=== PATIENT | female | born 1995 | race Caucasian/White ===

== ENCOUNTER 2020-02-24 08:15 | Outpatient (CLI) | payer OTHER, SELFPAY ==
--- NOTE | ~2020-02-24 | US_ITS ---
EXAMINATION: US right upper quadrant DATE: 02/24/2020 08:58 INDICATION: Right upper quadrant abdominal pain. TECHNIQUE: Multiple grayscale and Doppler ultrasound images of the abdomen were obtained. COMPARISON: None FINDINGS: The visualized portions of the head, body, and tail of the pancreas are normal. The liver i s normal without focal lesion. There is normal flow in main portal vein. The gallbladder is normal in size and contains sludge. No gallstones or gallbladder wall thickening. There was a positive sonogra phic Barker sign. The common duct is normal and measures 5 mm. IMPRESSION: 1. Gallbladder sludge and positive sonographic Barker sign, but no gallstones, gallbladder wall thick ening, or gallbladder distention to suggest acute cholecystitis. Reviewed, dictated and finalized at location A. IMPRESSION: 1. Gallbladder sludge and positive sonographic Barker sign, but no gallstones, gallbladder wall thickening, or gallbladder distention to suggest acute cholecy stitis.
== END 2020-02-24 08:16 | disposition home or self-care (01) ==
PROVIDERS: PCP Family Medicine; Visit Provider Family Medicine
DX: R10.9 Unspecified abdominal pain (principal); K83.9 Disease of biliary tract, unspecified; R19.8 Other specified symptoms and signs involving the digestive system and abdomen
CPT/HCPCS: 76705

== ENCOUNTER 2020-03-05 08:15 | Outpatient (CLI) | payer OTHER, SELFPAY ==
--- NOTE | ~2020-03-05 | NM_ITS ---
EXAMINATION: NM hepatobiliary w pharm DATE: 03/05/2020 10:17 INDICATION: Abdominal pain COMPARISON: None. TECHNIQUE: 4.8 mCi Tc-99m mebrofenin (Choletec) was administered intravenously. Scintigraphic images of the abdomen were obtained for one hour. 1.5 mcg sincalide (Kinevac) was administered by slow intr avenous infusion, and imaging was continued for 30 minutes. Gallbladder ejection fraction was calcula marlene by the technologist. FINDINGS: There is normal clearance of radiotracer from the blood pool. There is homogeneous tracer uptake by t he liver. Activity progresses to the gallbladder and bowel. The gallbladder ejection fraction (GBEF) is 55% (normal 10-90%, but most patient with gallbladder dysfunction have GBEF < 35% which does over lap with the normal range). IMPRESSION: 1. Normal hepatobiliary scan Reviewed, dictated and finalized at location A.
== END 2020-03-05 08:16 | disposition home or self-care (01) ==
LOC: ANHIMG 08:29
PROVIDERS: PCP Family Medicine; Visit Provider Family Medicine
DX: R10.9 Unspecified abdominal pain (principal)
CPT/HCPCS: 78227; A9537; J2805

== ENCOUNTER 2020-03-23 12:58 | Outpatient (CLI) | payer OTHER, SELFPAY ==
[2020-03-23 13:35] LABS: Alanine Aminotransferase 27 U/L (4-35); Albumin Level 4.7 g/dL (3.5-5.1); Alkaline Phosphatase 72 U/L (38-126); Amylase 62 U/L (30-110); Aspartate Amino Transferase 30 U/L (14-36); Bilirubin,Total 0.3 mg/dL (0.2-1.3); Lipase 43 U/L (23-300)
== END 2020-03-23 12:59 | disposition home or self-care (01) ==
PROVIDERS: PCP Family Medicine; Visit Provider Surgery
DX: K81.1 Chronic cholecystitis (principal); Z01.818 Encounter for other preprocedural examination
CPT/HCPCS: 36415; 80076; 82150; 83690; 86850; 86900; 86901

== ENCOUNTER 2020-03-24 01:54 | Outpatient (CLI) | payer OTHER, SELFPAY ==
[2020-03-24 18:09] LABS: SARS-CoV-2 RNA PCR Negative
== END 2020-03-24 01:55 | disposition home or self-care (01) ==
LOC: ANHCOVIDDT 01:54
PROVIDERS: PCP Family Medicine; Visit Provider Surgery
DX: Z01.818 Encounter for other preprocedural examination (principal); Z11.59 Encounter for screening for other viral diseases
CPT/HCPCS: 87635; C9803; U0003

== ENCOUNTER 2020-03-27 02:47 | Day surgery (SDC) | payer OTHER, SELFPAY ==
[2020-03-21 11:11] VITALS: BMI 32.9
[2020-03-27] VITALS (9 sets, daily range): BP systolic 86–116; BP diastolic 39–68; PULSE 54–80; RESP 12–20; TEMP 36.9; O2SAT 93–99
--- NOTE | 2020-03-27 07:23 | WPDANESEPPF ---
Anes - Initial Pre Proc Eval Procedure: Operation Date: 03/27/20 09:00 Proposed Procedures p Laparoscopic Cholecystectomy - Yael Luna MD Date/Time: 03/27/20 07:23 Surgeon: Yael Luna MD Pre Op Diagnosis: Chronic Cholecystitis Patient Data Age: 24 Gender: F Height: 5 ft 2 in Weight: 81.65 kg Allergies Allergy/AdvReac Type Severity Reaction Status Date / Time bacitracin Allergy Severe RASH Verified 03/21/20 11:12 gramicidin D Allergy Severe RASH Verified 03/21/20 11:12 polymyxin B Allergy Severe RASH Verified 03/21/20 11:12 adhesive AdvReac Mild RASH/BLISTE Verified 03/21/20 11:12 RS NEOMYCIN SULFATE Allergy Severe RASH Uncoded 03/21/20 11:12 Home Medications Medication Instructions Recorded Confirmed Type albuterol sulfate 90 mcg/actuation 1 puff INHALATION Q4H PRN 11/02/19 03/21/20 History aerosol inhaler dorzolamide 2 %-timolol 0.5 % (PF) 1 drop EACH EYE BID 11/02/19 03/21/20 History eye drops levothyroxine 137 mcg tablet 137 mcg PO DAILY 11/02/19 03/21/20 History ipratropium bromide 42 mcg (0.06 2 spray NASAL TID PRN 11/16/19 03/21/20 History %) nasal spray ondansetron 4 mg disintegrating 4 mg PO Q8H PRN 11/16/19 03/21/20 History tablet valacyclovir 1 gram tablet See Rx Instructions PO Q12H PRN #4 01/25/20 03/21/20 Rx tablet cholecalciferol (vitamin D3) 10 mcg PO DAILY 03/21/20 03/21/20 History [Vitamin D3] Patient hx anesthesia problems: post op nausea/vomiting Family hx anesthesia problems: none PMFSH Past Medical History Medical History Abdominal pain Abnormal fasting glucose Acute non-recurrent maxillary sinusitis Allergies Anxiety Biliary colic Chronic anxiety Chronic arthralgias of knees and hips Chronic autoimmune thyroiditis Chronic depression Depression Elevated liver enzymes Graves' disease in remission History of migraine headaches Hypothyroidism, unspecified Intractable right upper quadrant abdominal pain Migraine without aura and without status migrainosus, not intractable Nausea and vomiting Obesity Positive CHRISTIAN (antinuclear antibody) Posttraumatic stress disorder Seasonal allergic rhinitis Thyroid disorder Vitamin D deficiency, unspecified Surgical History Surgical History Hx of tonsillectomy (~2007) Family History Family History Mother Lupus Sjogren's disease Fibromyalgia Grandparent Kidney failure Diabetes mellitus Thyroid disorder Grandparent Hypertension COPD (chronic obstructive pulmonary disease) Grandparent Cancer Sibling Hemochromatosis Social History Social History Smoking packs per day: 0.5 Smoking cigarettes per day: 10.0 Years smoked: 6 Smoking pack-years: 3.00 Smoking status: Current every day smoker Tobacco type: cigarettes Second hand tobacco smoke exposure: Yes Alcohol intake: current Substance use: never Substance use type: marijuana Last use: 03/20/20 Spiritual care concerns: No Anes - Eval Final PreProcedure Day of Procedure 03/27/20 07:23 Patient weight: obese Heart: regular rate and rhythm Lungs: clear to auscultation Airway: Mallampati scale class II Neurological: alert and oriented Last oral intake: >/= 8 hours ASA classification: III Emergent: no Anesthetic plan: proceed Anesthesia type and monitoring: general ETT and standard monitoring Informed Consent: The patient's anesthetic plan and its attendant risks and benefits were discussed with the patient/family/POA. Questions were solicited and answers provided to the satisfaction of the patient/family/POA.
[2020-03-27] MEDS: KETOROLAC 15 MG/ML VIAL (*BKC) IV PUSH (07:45)
[2020-03-27] MEDS: LACTATED RINGERS 1,000 ML 30 ML IV CONT ×2 (07:45→09:43)
[2020-03-27] MEDS: FAMOTIDINE 20 MG/2 ML VIAL IV PUSH (07:50)
[2020-03-27] MEDS: SCOPOLAMINE 1.5 MG PATCH TRANSDERM (07:50)
[2020-03-27] MEDS: ONDANSETRON INJ 4 MG/2 ML VIAL IV PUSH (07:50)
--- NOTE | 2020-03-27 08:31 | WPDHPUPDATE1 ---
History and Physical Update Update Date/Time: 03/27/20 08:31 History and Physical has been reviewed, including an updated exam of the patient. There are NO changes in the patient's condition. Risks, benefits, and alternatives have been discussed and questions answered. Patient agrees to proceed with procedure.
[2020-03-27] MEDS: ceFAZolin 2 GM/D5W 50 ML 2 GM/50 ML BAG IVPB (08:35)
[2020-03-27] MEDS: BUPIVACAINE/EPINEPHRINE 0.5% 30 ML VIAL INFILTRATE (09:08)
--- NOTE | 2020-03-27 09:44 | PM.PROC ---
Procedure Note - Detailed Date of procedure: 03/27/20 Pre-op diagnosis: Chronic Cholecystitis Post-op diagnosis: same Procedure performed: laparoscopic cholecystectomy Description of procedure: The patient was taken to the operating room placed in the supine position. After adequate induction of general anesthesia, the patient was prepped and draped in normal sterile fashion. A time-out was then performed to verify the patient's identity as well as the procedure being performed. I then made a 5 mm incision in the infraumbilical region. Through this, a Veress needle was placed into the peritoneal cavity and CO2 gas was then insufflated. After adequate pneumoperitoneum was achieved, the Veress needle was removed and a 5 mm trocar was placed through this incision. I then placed the laparoscope through this trocar site and under direct visualization placed a further 12 mm subxiphoid port as well as 2 additional 5 mm ports in the right upper abdomen. The gallbladder was then identified and was noted to be slightly inflamed. I was able to place a grasper at the dome of the gallbladder and this was retracted anterior and cephalad up over the liver. A 2nd retractor was then placed at the infundibulum and retracted laterally, this allowed visualization of the triangle of Calot. I then was able to visualize the cystic duct in its entirety from its proximal insertion into the gallbladder, to its distal junction with the common hepatic/common bile duct junction. At this point, I carefully skeletonized the proximal cystic duct with the [place] dissector. I then clipped and transected the proximal cystic duct. Next I visualized the cystic artery. Again the artery was skeletonized, clipped, and transected. I then used the Bovie cautery to take down the peritoneal attachments of the gallbladder off the liver bed. Once the gallbladder specimen was completely detached, an endo-pouch was placed through the 12 mm port site. I then placed the gallbladder specimen into the Endo pouch and removed the endo-pouch from the 12 mm port site. The specimen will now be sent to pathology for further review. I then copiously irrigated the right upper quadrant. Hemostasis was noted in the liver bed, the clips were noted to be in good position on both the cystic duct stump and the cystic artery stump. No other pathology was noted in the right upper quadrant. I then moved the laparoscope to the subxiphoid port. No iatrogenic injury or other pathology was noted in the lower abdomen. At this point, the abdomen was desufflated and all ports removed. The fascia of the 12 mm subxiphoid port was closed with a 0 Vicryl figure of 8 suture. All port sites were then closed with 4.O Monocryl subcuticular sutures. Dermabond was placed on each incision. The patient tolerated the procedure well, was extubated in the operating room postoperative and will be transferred to the recovery room in stable condition. Implants: none Anesthesia: GETA Surgeon: Yael Luna MD Estimated blood loss (mL): 5 Drains: No Packing: No Pathology: yes Complications: No immediate complications Condition: stable Disposition: PACU Findings: chronic cholecystitis
== END 2020-03-27 11:30 | disposition home or self-care (01) ==
PROVIDERS: PCP Family Medicine; Visit Provider Surgery
PROC: 0FT44ZZ Resection of Gallbladder, Percutaneous Endoscopic Approach (ICD-10-PCS; CPT 47562; principal; 2020-03-27 09:00)
DX: K81.1 Chronic cholecystitis (principal); F41.8 Other specified anxiety disorders; E06.3 Autoimmune thyroiditis; E55.9 Vitamin D deficiency, unspecified; E66.9 Obesity, unspecified; Z68.33 Body mass index [BMI] 33.0-33.9, adult; F17.210 Nicotine dependence, cigarettes, uncomplicated; F12.90 Cannabis use, unspecified, uncomplicated
CPT/HCPCS: 47562; 88304; A9270; J0690; J1100; J1885; J2250; J2270; J2370; J2405; J2704; J3010; J7030; J7120

== ENCOUNTER 2020-08-17 10:37 | Outpatient (NON) | payer OTHER, SELFPAY ==
[2020-08-18 00:20] LABS: SARS-CoV-2 RNA PCR Negative
== END 2020-08-17 10:38 ==
LOC: ANHCOVIDDT 10:38
PROVIDERS: PCP Family Medicine; Visit Provider Family Medicine
DX: Z20.828 Contact with and (suspected) exposure to other viral communicable diseases (principal); J01.00 Acute maxillary sinusitis, unspecified
CPT/HCPCS: 87635; C9803; U0003

== ENCOUNTER 2020-10-11 10:14 | Outpatient (CLI) | payer OTHER, SELFPAY ==
--- NOTE | 2020-10-14 13:56 | WPDPFTINT ---
PFT Interpretation PFT Interpretation: This PFT met all criteria for ATS standards and reproducibility FEV/FVC 67% pre bronchodilator which improved to 82% post FEV1 90% FVC 89% FEV1 improved by 25% or 550 ml TLC 80% RV 45% RV/TLC 16% DLCO 75% when adjusted for alveolar volume but not adjusted for hemoglobin Flow volume loops were difficult to interpret Impression:Mild airflow obstruction with significant improvement post bronchodilator challenge and mildly decreased diffusion capacity. This pattern is most suggestive of Asthma. Clinical correlation is advised.
== END 2020-10-11 10:15 | disposition home or self-care (01) ==
LOC: ANHPFT 10:15
PROVIDERS: PCP Family Medicine; Visit Provider Family Medicine
DX: R05 Cough (principal); R94.2 Abnormal results of pulmonary function studies
CPT/HCPCS: 94060; 94726; 94729

== ENCOUNTER 2020-11-19 10:14 | Outpatient (CLI) | payer OTHER, SELFPAY ==
--- NOTE | ~2020-11-19 | XR_ITS ---
EXAMINATION: XR foot RT min 3V DATE: 11/19/2020 10:33 INDICATION: Right foot pain. TECHNIQUE: 4 views of right foot were obtained. COMPARISON: None. FINDINGS: Bone alignment is normal. No fracture. There is mild osteoarthritis of first metatarsophala ngeal joint. There is a nondisplaced fracture of dorsal proximal aspect of the navicular. IMPRESSION: 1. Age-indeterminate nondisplaced fracture of dorsal proximal aspect of navicular. 2. Mild osteoarthritis of first metatarsophalangeal joint. Reviewed, dictated and finalized at location A. BODY REPAIRER IMPRESSION: 1. Age-indeterminate nondisplaced fracture of dorsal proximal aspect of navicul ar. 2. Mild osteoarthritis of first metatarsophalangeal joint.
== END 2020-11-19 10:15 | disposition home or self-care (01) ==
LOC: ANHIMG 10:22
PROVIDERS: PCP Family Medicine; Visit Provider Family Medicine
DX: M19.071 Primary osteoarthritis, right ankle and foot (principal); S92.254A Nondisplaced fracture of navicular [scaphoid] of right foot, initial encounter for closed fracture; X58.XXXA Exposure to other specified factors, initial encounter
CPT/HCPCS: 73630

== ENCOUNTER → 2021-09-25 09:44 | Outpatient (CLI) | payer OTHER, SELFPAY ==
--- NOTE | ~2021-09-25 | US_ITS ---
US breast LT complete INDICATION: Palpable left breast lump TECHNIQUE: Dedicated left breast ultrasound COMPARISON: No prior studies for comparison. FINDINGS: The left breast is composed of normal heterogeneous echotexture without focal solid or cyst ic mass. IMPRESSION: 1: Normal left breast ultrasound. BI-RADS CATEGORY 1 - NEGATIVE Reviewed, dictated and finalized at location A. D FOLDER
== END ==
PROVIDERS: Visit Provider Advanced Practice Midwife
DX: R92.8 Other abnormal and inconclusive findings on diagnostic imaging of breast (principal)
CPT/HCPCS: 76641

== ENCOUNTER 2023-02-01 12:46 | Emergency (ER) | payer OTHER, SELFPAY ==
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
[2023-02-01 12:56] VITALS: BP 125/89; PULSE 66; RESP 16; TEMP 36.7; O2SAT 100
[2023-02-01 12:59] VITALS: BP 125/89; PULSE 66; RESP 16; TEMP 36.7; O2SAT 100
== END 2023-02-01 13:26 | disposition home or self-care (01) ==
PROVIDERS: Emergency Provider Nurse Practitioner Family; PCP Family Medicine
DX: L25.5 Unspecified contact dermatitis due to plants, except food (principal); F17.210 Nicotine dependence, cigarettes, uncomplicated; E66.9 Obesity, unspecified; Z68.29 Body mass index [BMI] 29.0-29.9, adult; K21.9 Gastro-esophageal reflux disease without esophagitis; E89.0 Postprocedural hypothyroidism
CPT/HCPCS: 96372; 99213; G0463; J1100

== ENCOUNTER 2024-09-06 13:19 | Emergency (ER) | payer BC, SELFPAY ==
[2024-09-06 13:19] VITALS: BP 103/68; PULSE 76; RESP 20; TEMP 36.8; O2SAT 100
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
[2024-09-06 19:37] LABS: EDUAAPPEAR Clear; EDUABILI Negative (Negative); EDUABLOOD Negative (Negative); EDUACOLOR1 Yellow; EDUAGLUCOSE Negative (Negative); EDUAKETONE Negative (Negative); EDUALEUKO Negative (Negative); EDUANITRATE Negative (Negative); EDUAPH 7.5; EDUAPROTEIN Negative (Negative); EDUASPGRAVITY 1.015; EDUAUROBILI 0.2
== END 2024-09-06 14:20 | disposition home or self-care (01) ==
PROVIDERS: Emergency Provider Nurse Practitioner Family; PCP Family Medicine
DX: R30.0 Dysuria (principal); F17.210 Nicotine dependence, cigarettes, uncomplicated
CPT/HCPCS: 81003; 87086; 99213; G0463

== ENCOUNTER 2024-11-27 13:27 | Emergency (ER) | payer BC, MEDICAID, SELFPAY ==
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
[2024-11-27 13:48] VITALS: BP 115/65; PULSE 70; RESP 20; TEMP 36.6; O2SAT 100
== END 2024-11-27 14:00 | disposition home or self-care (01) ==
PROVIDERS: Emergency Provider Nurse Practitioner Family; PCP Family Medicine
DX: S61.031A Puncture wound without foreign body of right thumb without damage to nail, initial encounter (principal); W55.01XA Bitten by cat, initial encounter; F17.210 Nicotine dependence, cigarettes, uncomplicated; K21.9 Gastro-esophageal reflux disease without esophagitis; E89.0 Postprocedural hypothyroidism; E66.9 Obesity, unspecified; Z68.31 Body mass index [BMI] 31.0-31.9, adult
CPT/HCPCS: 99213; G0463

== ENCOUNTER 2025-04-11 15:35 | Outpatient (CLI) | payer BC, OTHER, SELFPAY ==
--- NOTE | ~2025-04-11 | XR_ITS ---
EXAM: XR hand RT 2V DATE: 04/11/2025 16:04 HISTORY: PAIN AND BRUISING TO PROX 4TH METACARPAL AFTER SMASHING . COMPARISON: None available. FINDINGS: Normal mineralization. No fracture or dislocation. No lytic or blastic lesion. Joint space s are maintained. No erosion or periosteal change. Soft tissues within normal limits. IMPRESSION: No acute osseous finding in the right hand. Reviewed, dictated and finalized at location K.
--- OUTSIDE RECORDS SUMMARY | 2025-04-11 15:43 | XMS_ITS | Clinical Summary ---
Author Organization [facility] Address [address] [place] [address] Care Team Providers Care Electrophysiologist Name Role Phone Brook Orantes LASHELL Unavailable [phone] Cory Mercedes MD Unavailable [phone] Poncho DUMONT MD, Saúl Le. Unavailable [phone] Saúl Hernandez MD Primary Care Provider [phone] Allergies Active Allergy Reactions Criticality Noted Date Comments Adhesive Rash,Blisters High 11/24/2016 Paper tape can cause rash too Bacitracin Swelling,Rash Medium 11/09/2016 Lidocaine Unknown 12/16/2021 Patient states she is not sure when this got added. She has been using lidocaine patches without issue. Miconazole Nitrate Other (See comments) Low 02/11/2024 Mold Unknown 02/11/2024 Neomycin Swelling,Rash Medium 11/09/2016 Tmsvijnu-Ksxoawhmmf-Opvhkg eneida Hives Medium Polymyxin B Hives Medium 04/25/2013 Pramoxine Hives Medium 04/25/2013 Prochlorperazine Rash Medium 02/23/2019 Sertraline Hives Medium 11/24/2016 Medications Ventolin HFA 90 mcg/actuation inhalerIndicati ons:Acute Asthma Attack Inhale 2 puffs as needed for wheezing or shortness of breath Active acetaminophen (TYLENOL) 500 mg tabletIndicatio ns:Graves disease Take 1 tablet (500 mg total) by mouth every 6 (six) hours as needed for pain (first line for pain) 30 tablet 1 1 Active fluticasone propionate (FLONASE) 50 mcg/actuation nasal sprayIndication s:Allergic Rhinitis Administer 1 spray into each nostril as needed 1 Active dorzolamide-eduardo oloL (Cosopt) 22.3-6.8 mg/mL ophthalmic solutionIndicat ions:Graves disease Administer 1 drop into both eyes 2 (two) times a day 10 mL 5 2 Active levothyroxine (SYNTHROID) 137 mcg tablet Take 1 tablet (137 mcg total) by mouth card placer before breakfast 30 tablet 3 Active bisacodyl EC (DULCOLAX EC) 5 mg EC tabletIndicatio ns:constipation Take 2 tablets (10 mg total) by mouth daily as needed for constipation (If no results 24 hours after milk of magnesia) 30 tablet 3 Active bisacodyl EC (DULCOLAX EC) 5 mg EC tabletIndicatio ns:constipation Take 2 tablets (10 mg total) by mouth daily as needed for constipation (If no results 24 hours after milk of magnesia) 30 tablet 3 Active metoclopramide (REGLAN) 10 mg tablet Take 1 tablet (10 mg total) by mouth every 8 (eight) hours as needed (nausea and headache) 15 tablet 4 Active cyclobenzaprine (FLEXERIL) 10 mg tablet Take 1 tablet (10 mg total) by mouth 3 (three) times a day as needed for muscle spasms for up to 30 doses 30 tablet 4 Active HYDROcodone-jc taminophen (NORCO) 5-325 mg per tabletIndicatio ns:Pain Take 1 tablet by mouth every 6 (six) hours as needed for pain 5 Active Active Problems Problem Noted Date Diagnosed Date Lumbar disc herniation 08/20/2023 Displacement of left side of L4-L5 intervertebra l disc 07/21/2023 L4-L5 disc bulge 07/21/2023 Esotropia 06/06/2021 Vitamin D deficiency 05/27/2021 Class 1 obesity due to excess calories in adult 05/27/2021 Positive CHRISTIAN (antinuclear antibody) 04/25/2020 SI joint arthritis 04/25/2020 Bilateral hip pain 04/25/2020 Bilateral hand pain 04/25/2020 Palpitations 09/09/2019 PTSD (post-traumatic stress disorder) 08/31/2019 Diplopia 08/29/2019 Assessment & Plan (08/29/2019 5:54 PM RADIOTELEGRAPHIST): Small LH deviation in primary gaze. Pt appreciates prism correction - eliminates sx. Pt will RTC for fresnel prism - needs 1.0 base-down prism (BD) left eye (OS). Postablative hypothyroidism 04/19/2019 Orthostatic dizziness 04/19/2019 Bilateral ocular hypertension 02/22/2019 Assessment & Plan (01/10/2020 10:47 AM CDT): IOPs borderline - pt admits to poor compliance. Continue Timolol BID OU. Repeat visual field (VF) in 4 mo. Stressed compliance. Assessment & Plan (08/29/2019 5:51 PM RADIOTELEGRAPHIST): IOPs at [facility] today. Switch from Timolol BID to Cosopt BID. Pt ed. RTC 4-6 weeks intraocular pressure (IOP) check, pachymetry, gonioscopy. Assessment & Plan (02/22/2019 5:33 PM CDT): Start Timolol BID both eyes (OU) due to the RNFL thinning in setting of TANESHA. RTC 3-4 weeks intraocular pressure (IOP) check. Thyroid eye disease 02/04/2019 Assessment & Plan (01/10/2020 10:46 AM CDT): Maintain schedule f/u with Oculoplastics and Endocrinology. Recommend aggressive ocular lubrication - celluvisc or genteal QID+ both eyes (OU). Stressed importance of smoking cessation. Assessment & Plan (08/29/2019 5:54 PM RADIOTELEGRAPHIST): Patient has been established with Endocrinology - maintain scheduled f/u with them. Assessment & Plan (02/22/2019 5:34 PM CDT): Pt ed on findings. Obtain CT scan of the orbits to assess EOMs. Refer to oculoplastics for evaluation after imaging is completed. OCT with RNFL thinning left eye (OS)>OD. No direct correlation on OCT. Due to borderline IOPs (27) and RNFL thinning, will start Timolol qam both eyes (OU). Exophthalmos of both eyes 02/04/2019 Overview (03/15/2019): left eye (OS)>OD Assessment & Plan (01/10/2020 10:46 AM CDT): Garza visual field (HVF) and OCT without e/o optic atrophy. Pt ed. Repeat 6- 12 mo. Assessment & Plan (08/29/2019 5:53 PM RADIOTELEGRAPHIST): Pt is known to Oculoplastics - orbital decompression discussed per patient- thought to be in active phase still. No surgery is planned at this time. Assessment & Plan (02/04/2019 5:15 PM CDT): left eye (OS)>OD. Stressed importance of dc smoking with patient. See plan above. Dry cornea of both eyes due to Graves' disease 0 02/04/2019 Assessment & Plan (08/29/2019 5:51 PM RADIOTELEGRAPHIST): Recommend appropriate re-wetting drops OTC. Recommend Celluvisc or lubricating ointment qhs both eyes (OU). Assessment & Plan (02/04/2019 5:15 PM CDT): Recommend Soothe or Refresh ATs BID+ both eyes (OU). Myopia of both eyes 02/04/2019 Assessment & Plan (02/04/2019 5:16 PM CDT): Update Mrx. Fatigue 2017 Pain in joint 2017 Chronic sinusitis 10/19/2017 Cough 10/19/2017 Flu-like symptoms 10/15/2017 Thyroid activity decreased 09/02/2017 Post-nasal drip 07/24/2017 Cat scratch 06/02/2017 Herpes labialis 05/05/2017 URI, acute 03/02/2017 BPPV (benign paroxysmal positional vertigo) 11/12 Moderate anxiety 11/24/2016 Memory impairment 05/07/2016 Syncope 05/07/2016 Anaclitic depression 06/03/2015 Current smoker 04/04/2015 Overview (12/25/2017): Description: 6 cigs per day since age 18 Muscle weakness of lower extremity 11/28/2014 Involuntary quiver 11/28/2014 Migraine with aura 11/28/2014 Graves disease 11/24/2014 Low back pain 01/01/2010 Resolved Problems Problem Noted Date Diagnosed Date Resolved Date Papilledema of both eyes 12/09/2016 Encounters Date Type Department Care Team Description 03/17/2025 3:05 AM CDT - 03/17/2025 6:[address] [facility] ([place], [place]) Emergency Department [address] [place] [address] PrograiAmanda victor MD Other migraine without status migrainosus, not intractable (Primary Dx); Abdominal pain, generalized; Intermittent lightheadedness Discharge Disposition: Discharge to home or self care 02/28/2025 2:15 PM CDT Office Visit [facility] Ophthalmology [address] [place] [address] Austin Ramos MD Thyroid eye disease (Primary Dx) from Last 3 Months Surgical History Surgery Date Site/Laterality Comments [place] TONSILLECTOMY PRIMARY/SECONDARY <AGE 14 09/14/2008 - 09/13/2009 CHOLECYSTECTOMY 09/14/2019 - 09/13/2020 IR INJECTION ARTHROGRAM SI JOINT LEFT INCLUDES IMAGING GUIDANCE 10/18/2020 Left EYE SURGERY 10/23/2020 Left decompression orbit EYE SURGERY 11/27/2020 Right decompression orbit EYE MUSCLE SURGERY 03/07/2021 Bilateral inferior rectus recession 4mm (Dr. Brian) EYE MUSCLE SURGERY 08/15/2021 Bilateral RECESSION - EYE MUSCLE BACK SURGERY 08/14/2023 - 09/13/2023 herniated disck Medical History Medical History Date Comments Personal history of other me ntal and behavioral disorders History of anxiety disorder - (Added by TW Conv) Personal history of other di seases of the nervous system and sense organs History of migrain e headaches - (Added by TW Conv) Personal history of other di seases of the nervous system and sense organs History of exophor ia - (Added by TW Conv) Benign intracranial hypertension Pseudotumor cerebri - (Added by TW Conv) Papilledema of both eyes 12/09/2016 Thyroid disease Anxiety Depression PONV (postoperative nausea a nd vomiting) Motion sickness Graves disease Bulging lumbar disc L4-5 Last menstrual period (LMP) > 10 days ago 07/31/23 NOT ON ANY CO NTROL Asthma GERD (gastroesophageal reflux disease) Hypothyroidism Family History Medical History Relation Name Comments Anesthesia problems Mother PONV Arrhythmia Mother Lupus Mother Family history of systemic lupus erythematosus - (Added by TW Conv) Migraines Mother Family history of migraine headaches - (Added by TW Conv) Cataracts Neg Hx Fuchs' dystrophy Neg Hx Glaucoma Neg Hx Hypertension Neg Hx Retinal detachment Neg Hx Relation Name Status Comments Mother Alive Social History Tobacco Use Types Packs/Day Years Used Date Smoking Tobacco: Former Cigarettes 0.5 8.2 2 015 - 11/12/2022 Smokeless Tobacco: Never Tobacco Cessation:Counseling Given: Not Answered Alcohol Use Standard Drinks/Week Comments Yes 0 (1 standard drink = 0.6 oz pur e alcohol) rare Enjoyor Utilities Answer Date Recorded In the past 12 months has e electric, gas, oil, or water [employer] threatened to shut off services in your home? No 08/21/2023 Social Connection and Isolat ion Panel [NHANES] Answer Date Recorded In a typical week, how many times do you talk on the phone with family, friends, or neighbors? More than three times a week 08/21/2023 How often do you get togethe r with friends or relatives? More than three times a week 08/21/2023 How often do you attend chur ch or protestant services? Never 08/21/2023 Do you belong to any clubs o r organizations such as evangelical groups, unions, fraternal or athletic groups, or school groups? No 08/21/2023 How often do you attend meet ings of the clubs or organizations you belong to? Never 08/21/2023 Are you , , di vorced, , never , or living with a partner? Never 08/21/2023 AUDIT-C Answer Date Recorded Q1: How often do you have a drink containing alc ohol? Monthly or less 12/09/2024 Q2: How many drinks containi ng alcohol do you have on a typical day when you are drinking? 3 or 4 12/09/2024 Q3: How often do you have si x or more drinks on one occasion? Never 12/09/2024 Overall Financial Resource Strain (CARDIA) Answe r Date Recorded How hard is it for you to pa y for the very basics like food, housing, medical care, and heating? Not hard at all 08/21/2023 Hunger Vital Sign Answer Date Recorded Within the past 12 months, y ou worried that your food would run out before you got the money to buy more. Never true 08/21/20 23 Within the past 12 months, t he food you bought just didn't last and you didn't have money to get more. Never true 08/21/2023 PRAPARE - Transportation Answer Date Re corded In the past 12 months, has l ack of transportation kept you from medical appointments or from getting medications? No 04/2023 In the past 12 months, has l ack of transportation kept you from meetings, work, or from getting things needed for daily living? No 08/21/2023 Housing Stability Vital Sign Answer Gato e Recorded In the last 12 months, was t here a time when you were not able to pay the mortgage or rent on time? No 08/21/2023 In the last 12 months, how many places have you lived? 1 08/21/2023 In the last 12 months, was t here a time when you did not have a steady place to sleep or slept in a [place] [facility] [place] (including now)? No 08/21/2023 Personal Safety Answer Date Recorded Have you ever been in or are you currently in a harmful physical or emotional relationship or is someone making you feel afraid or unsafe? Denies 03/17/2025 Comments No Sex and Gender Information Value Date Recorded Sex Assigned at Not on file Legal Sex Female 9:51 AM RADIOTELEGRAPHIST Gender Identity Not on file Sexual Orientation Not on file Obstetrics History Last Filed Vital Signs Vital Sign Reading Time Taken Comments Blood Pressure 101/64 03/17/2025 5:44 AM CDT Pulse 71 03/17/2025 5:44 AM CDT Temperature 36.1 C (97 F) 03/17/2025 1:10 AM CDT Respiratory Rate 16 03/17/2025 5:30 AM CDT Oxygen Saturation 99% 03/17/2025 5:44 AM CDT Inhaled Oxygen Concentration - - Weight 83.9 kg (184 lb 15.5 oz) 03/17/2025 1:10 AM CDT Height 157.5 cm (5' 2) 03/17/2025 1:10 AM CDT Body Mass Index 33.83 03/17/2025 1:10 AM CDT Plan of Treatment Health Maintenance Due Date Last Done Comments Cervical Cancer Screening 1997 Depression Screening 1997 Hepatitis C Screening 1997 Varicella Vaccines (1 of 2 - 13+ 2-dose series) 2010 Hepatitis B Screening 12/12/2015 Regular Well Visit/Exam 18-64 12/12/2015 Pneumococcal vaccine <65 (1 of 2 - PCV) 2016 HPV Vaccines (1 - 3-dose SCDM series) 2024 Influenza Vaccine (#1) 2025 07/14/2003, 1998 DTaP/Tdap/Td Vaccine (3 - Td or Tdap) 11/05/2031 11/05/2021, 12/13/2002, 12/13/2002 Procedures Procedure Name Priority Date/Time Associated Diagnosis Comments CT HEAD WO CONTRAST ED 03/17/2025 4 :[address] ABDOMEN PELVIS W CONTRAST ED 03/17/2025 4:25 AM CDT DRUGS OF ABUSE SCREEN, URINE WITHOUT CONFIRMATION STAT 03/17/2025 4:11 AM CDT POCT HCG, URINE Routine 03/17/2025 1:27 AM CDT T3, FREE STAT 03/17/2025 1:20 AM CDT T4, FREE STAT 03/17/2025 1:20 AM CDT THYROID FUNCTION CASCADE STAT 03/17/2025 1:20 AM CDT EGFR STAT 03/17/2025 1:20 AM CDT DIFFERENTIAL AUTO STAT 03/17/2025 1:2 0 AM CDT LIPASE STAT 03/17/2025 1:20 AM CDT COMPREHENSIVE METABOLIC PANEL STAT 03/17/2025 1:20 AM CDT CBC WITH AUTO DIFFERENTIAL STAT 03/17/2025 1:20 AM CDT URINALYSIS AND REFLEX TO MICROSCOPIC AND CULTURE STAT 03/17/2025 1:20 AM CDT from Last 3 Months Results * CT Abdomen Pelvis W Contrast (03/17/2025 4:25 AM CDT) Anatomical Region Laterality Modality Body N/A Computed Tomogra phy 03/17/2025 4:46 AM CDT Narrative 03/17/2025 4:52 AM CDT EXAM DESCRIPTION: CT ABDOMEN PELVIS W CONTRAST REASON FOR STUDY: LLQ abdominal pain Pt to the ED for abd pain, N/V, dizziness, and headache that started 8pm last night. Pt states she has had similar episodes of this for the past two months. Pt is Adenies taking any medications at home. Hx of graves disease taking levothyroxine daily. TECHNIQUE: CT scan of the abdomen and pelvis performed with intravenous and without oral contrast using helical scanning technique with dynamic intravenous contrast injection. Reconstructed coronal and sagittal MPR images reviewed. All images stored on PACS. Automated exposure control was used as a dose optimization technique for this examination. CONTRAST TYPE/DOSE: 100mL of IOVERSOL 350 MG IODINE/ML INTRAVENOUS SYRINGE injected via intravenous COMPARISON: 05/23/2022 FINDINGS: LOWER CHEST: Lung bases are clear. Heart size normal. No effusion. LIVER/BILIARY: Liver unremarkable. Biliary tree normal in caliber. GALLBLADDER: Absent. SPLEEN: Normal. PANCREAS: Normal. ADRENAL GLANDS: Normal. KIDNEYS/URINARY TRACT: Unremarkable. GI: Stomach and small bowel appear normal. Colon and appendix unremarkable. OTHER ABDOMINAL/PELVIS: Major vascular structures are grossly patent and normal in caliber. No enlarged lymph node or free fluid. MSK: Unremarkable. BODY WALL: Unremarkable. IMPRESSION: No bowel inflammation or other acute abnormality identified. THIS IS AN ELECTRONICALLY VERIFIED FINAL REPORT 03/17/2025 4:52 AM - Electronically signed by Warren Nevarez M.D. AR: JATINDER Report ID: [id number] Reading Location: [id number] Procedure Note Warren Nevarez MD - 03/17/2025 EXAM DESCRIPTION: CT ABDOMEN PELVIS W CONTRAST REASON FOR STUDY: LLQ abdominal pain Pt to the ED for abd pain, N/V, dizziness, and headache that started 8pmlast night. Pt states she has had similar episodes of this for the past twomonths. Pt is Adenies taking any medications at home. Hx of graves disease taking levothyroxine daily. TECHNIQUE: CT scan of the abdomen and pelvis performed with intravenousand without oral contrast using helical scanning technique with dynamic intravenous contrast injection. Reconstructed coronal and sagittal MPRimages reviewed. All images stored on PACS. Automated exposure control was usedas a dose optimization technique for this examination. CONTRAST TYPE/DOSE: 100mL of IOVERSOL 350 MG IODINE/ML INTRAVENOUSSYRINGE injected via intravenous COMPARISON: 05/23/2022 FINDINGS: LOWER CHEST: Lung bases are clear. Heart size normal. No effusion. LIVER/BILIARY: Liver unremarkable. Biliary tree normal in caliber. GALLBLADDER: Absent. SPLEEN: Normal. PANCREAS: Normal. ADRENAL GLANDS: Normal. KIDNEYS/URINARY TRACT: Unremarkable. GI: Stomach and small bowel appear normal. Colon and appendixunremarkable. OTHER ABDOMINAL/PELVIS: Major vascular structures are grossly patent and normal in caliber. No enlarged lymph node or free fluid. MSK: Unremarkable. BODY WALL: Unremarkable. IMPRESSION: No bowel inflammation or other acute abnormality identified. THIS IS AN ELECTRONICALLY VERIFIED FINAL REPORT 03/17/2025 4:52 AM - Electronically signed by Warren Nevarez M.D. AR: JATINDER Report ID: [id number] Reading Location: [id number] Amanda Bustillos MD IMG CT PROCEDURES Kaitlynn l Result * CT head without contrast (03/17/2025 4:25 AM CDT) Anatomical Region Laterality Modality Head and Neck N/A Computed Tomogra phy 03/17/2025 4:52 AM CDT Narrative 03/17/2025 4:54 AM CDT EXAM DESCRIPTION: CT HEAD WO CONTRAST REASON FOR STUDY: Headache, increasing frequency or severity, stroke alert patient Pt to the ED for abd pain, N/V, dizziness, and headache that started 8pm last night. Pt states she has had similar episodes of this for the past two months. Pt is Adenies taking any medications at home. Hx of graves disease taking levothyroxine daily. TECHNIQUE: Axial images acquired through the brain without intravenous contrast. Images stored on PACS. Automated exposure control was used as a dose optimization technique for this examination. COMPARISON: 04/08/2024 FINDINGS: BRAIN: No mass, hemorrhage, or recent infarct. Normal white matter. Volume within normal limits for age. VASCULAR: No dense vessel or obvious aneurysm. EXTRA-AXIAL SPACES: No mass or fluid collection. ORBITS/GLOBES: Unremarkable. SOFT TISSUES: Unremarkable. BONES/SINUSES: No fracture or lesion. Paranasal sinuses and other skullbase airspaces are clear. IMPRESSION: No acute abnormality identified. THIS IS AN ELECTRONICALLY VERIFIED FINAL REPORT 03/17/2025 4:54 AM - Electronically signed by Warren Nevarez M.D. AR: JATINDER Report ID: [id number] Reading Location: [id number] Procedure Note Warren Nevarez MD - 03/17/2025 EXAM DESCRIPTION: CT HEAD WO CONTRAST REASON FOR STUDY: Headache, increasing frequency or severity, stroke alert patient Pt to the ED for abd pain, N/V, dizziness, and headache that started 8pmlast night. Pt states she has had similar episodes of this for the past twomonths. Pt is Adenies taking any medications at home. Hx of graves disease taking levothyroxine daily. TECHNIQUE: Axial images acquired through the brain without intravenous contrast. Images stored on PACS. Automated exposure control was used asa dose optimization technique for this examination. COMPARISON: 04/08/2024 FINDINGS: BRAIN: No mass, hemorrhage, or recent infarct. Normal white matter. Volume within normal limits for age. VASCULAR: No dense vessel or obvious aneurysm. EXTRA-AXIAL SPACES: No mass or fluid collection. ORBITS/GLOBES: Unremarkable. SOFT TISSUES: Unremarkable. BONES/SINUSES: No fracture or lesion. Paranasal sinuses and otherskullbase airspaces are clear. IMPRESSION: No acute abnormality identified. THIS IS AN ELECTRONICALLY VERIFIED FINAL REPORT 03/17/2025 4:54 AM - Electronically signed by Warren Nevarez M.D. AR: JATINDER Report ID: [id number] Reading Location: [place] [id number] Amanda Bustillos MD IMG CT PROCEDURES Kaitlynn l Result * (ABNORMAL) Drugs of Abuse Screen, Urine without Confirmation (03/17/2025 4:11 AM CDT) Pathologist [facility] [place] Amphetamine, ur Not Detected CutOff 500ng/mL Comment: Interpretive Data - Amphetamines: Samples containing greater than 500 ng/mL d-methamphetamine or other cross-reacting amphetamine compounds are reported as positive. Amphetamine immunoassays are subject to significant false positive rates due to cross-reactivity of non-amphetamine drugs. Confirmatory testing required for definitive results. Current Interpretive Data was last reviewed 2023. Testing performed by: [address] [address] Barbiturates, ur Not Detected CutOff 200ng/mL [facility] Comment: Interpretive Data - Barbiturates: Samples containing greater than 200 ng/mL secobarbital or other cross-reacting barbiturate compounds are reported as positive. False positive and false negative results are possible. Confirmatory testing required for definitive results. Current Interpretive Data was last reviewed 2023. Testing performed by: [address] [address] Benzodiazepines, ur Not Detected CutOff 100ng/mL [facility] Comment: Interpretive Data - Benzodiazepines: Samples containing greater than 100 ng/mL nordiazepam or other cross-reacting compounds are reported as positive. False positive and false negative results are possible. Confirmatory testing required for definitive results. Current Interpretive Data was last reviewed 2023. Testing performed by: [facility], [address] [place] [address]., [id number] Cannabinoids, ur Screen Positive, presumptive (A) CutOff 50 ng/mL [facility] Comment: Interpretive Data - Cannabinoids: Samples containing greater than 50 ng/mL delta-9 THC -COOH or other cross- reacting compounds are reported as positive. False positive and false negative results are possible. Confirmatory testing required for definitive results. Current Interpretive Data was last reviewed 2023. Testing performed by: [address] [address] Cocaine, ur Not Detected CutOff 150ng/mL [facility] Comment: Interpretive Data - Cocaine: Samples containing greater than 150 ng/mL benzoylecgonine or other cross- reacting compounds are reported as positive. False positive and false negative results are possible. Confirmatory testing required for definitive results. Current Interpretive Data was last reviewed 2023. Testing performed by: [address] [address] Fentanyl, Ur Not Detected CutOff 5 ng/mL [facility] Comment: Interpretive Data - Fentanyl: Samples containing greater than 1 ng/mL fentanyl or other cross-reacting fentanyl compounds are reported as positive. False positive and false negative results are possible. Confirmatory testing required for definitive results. Current Interpretive Data was last reviewed 2023. Testing performed by: [address] [address] Methadone, ur Not Detected CutOff 300ng/mL [facility] Comment: Interpretive Data - Methadone: Samples containing greater than 300 ng/mL d,l-methadone or other cross-reacting compounds are reported as positive. False positive and false negative results are possible. Confirmatory testing required for definitive results. Current Interpretive Data was last reviewed 2023. Testing performed by: [address] [address] Opiates, ur Not Detected CutOff 300ng/mL [facility] Comment: Interpretive Data - Opiates: Samples containing greater than 300 ng/mL morphine or other cross-reacting compounds are reported as positive. False positive and false negative results are possible. Confirmatory testing required for definitive results. Current Interpretive Data was last reviewed 2023. Testing performed by: [address] [address] Oxycodone, ur Not Detected CutOff 100ng/mL [facility] Comment: Interpretive Data - Oxycodone: Samples containing greater than 100 ng/mL oxycodone or other cross-reacting compounds are reported as positive. False positive and false negative results are possible. Confirmatory testing required for definitive results. Current Interpretive Data was last reviewed 2023. Testing performed by: [address] [address] Phencyclidine, ur Not Detected CutOff 25 ng/mL [facility] Comment: Interpretive Data - Phencyclidine: Samples containing greater than 25 ng/mL phencyclidine or other cross-reacting compounds are reported as positive. False positive and false negative results are possible. Confirmatory testing required for definitive results. Current Interpretive Data was last reviewed 2023. Testing performed by: [address] [address] Urine Creatinine 68 mg/dL RYAN Comment: Interpretive Data Urine Creatinine: < 10 mg/dL is extremely dilute = or > 10 but < 20 mg/dL is dilute = or > 20 mg/dL is normal Current Interpretive Data was last revised on 2017. Testing performed by: [address] [address] Urine 03/17/2025 4:11 AM CDT 03/17/2025 4:17 AM CDT Narrative RYAN - 03/17/2025 4:41 AM CDT Drug of Abuse screening is performed by immunoassay for medical purposes only. This is not to be used for Pain Management purposes. us Amanda Bustillos MD LAB URINE ORDERABLES F inal Result RYAN [address] [facility] [place] [address] * POCT hCG, urine (03/17/2025 1:27 AM CDT) Pathologist [facility] [place] HCG, ur, POC Negative Negative Lot Number [id number] QC Backgroud Clear Acceptable QC Control Line Acceptable Urine 03/17/2025 1:27 AM CDT Amanda Bustillos MD POINT OF CARE TEST ORD ERABLES Final Result * eGFR (03/17/2025 1:20 AM CDT) Pathologist [facility] [place] eGFR >90 >=60 mL/min/1. 73 m2 Comment: Interpretive Data Reference Interval Normal >/= 90 mL/min/1.73m2 Mildly decreased* 60 - 89 mL/min/1.73m2 Mildly to moderately decreased 45 - 59 mL/min/1.73m2 Moderately to severely decreased 30 - 44 mL/min/1.73m2 Severely decreased 15 - 29 mL/min/1.73m2 Kidney Failure < 15 mL/min/1.73m2 *Relative to young adult level Estimated glomerular filtration rate is determined by the 2020 CKD-EPI equation recommended by the National Kidney Foundation (A Unifying Approach to GFR Estimation: Recommendations of the NKF-ASK Task Force on Reassessing the Inclusion of Race in Diagnosing Kidney Disease, JASN 2020). The CKD-EPI equation should not be used for patients with unstable renal function and has not been validated in children and those over 70. Current interpretive data was last reviewed 2021. Testing performed by: [facility], [address] [place] [address]., [address] Blood 03/17/2025 1:20 AM CDT 03/17/2025 1:30 AM CDT us Amanda Bustillos MD LAB BLOOD ORDERABLES F inal Result RYAN [address] [facility] [place] [address] * Differential, auto (03/17/2025 1:20 AM CDT) Pathologist [facility] [place] Neutrophil abs 3.85 1.50 - 6.50 K/cumm Comment:Testing performed by : [address], [place]., [address] Imm gran abs 0.02 0.00 - 0.10 K/cumm [facility] Comment:Testing performed by : [facility], [address] [place] [address], [place]., [address] Lymphocyte abs 3.12 0.80 - 3.30 K/cumm [facility] Comment:Testing performed by : [address], [place]., [address] Monocyte abs 0.71 0.20 - 0.80 K/cumm [facility] Comment:Testing performed by : [address], [place]., [address] Eosinophil abs 0.14 0.00 - 0.50 K/cumm [facility] Comment:Testing performed by : [address], [place]., [address] Basophil abs 0.06 0.00 - 0.10 K/cumm [facility] Comment:Testing performed by : [address] [address] Neutrophil pct 48.6 % [facility] Comment: Interpretive Data Percent cell count reference ranges are not reported, since discordance with absolute values may lead to misinterpretation of CBC data. Current Interpretive Data was last revised on 2017. Testing performed by: [address] [address] Imm gran pct 0.3 % [facility] Comment: Interpretive Data Percent cell count reference ranges are not reported, since discordance with absolute values may lead to misinterpretation of CBC data. Current Interpretive Data was last revised on 2017. Testing performed by: [address] [address] Lymphocyte pct 39.5 % [facility] Comment: Interpretive Data Percent cell count reference ranges are not reported, since discordance with absolute values may lead to misinterpretation of CBC data. Current Interpretive Data was last revised on 2017. Testing performed by: [address] [address] Monocyte pct 9.0 % [facility] Comment: Interpretive Data Percent cell count reference ranges are not reported, since discordance with absolute values may lead to misinterpretation of CBC data. Current Interpretive Data was last revised on 2017. Testing performed by: [address] [address] Eosinophil pct 1.8 % [facility] Comment: Interpretive Data Percent cell count reference ranges are not reported, since discordance with absolute values may lead to misinterpretation of CBC data. Current Interpretive Data was last revised on 2017. Testing performed by: [address] [address] Basophil pct 0.8 % [facility] Comment: Interpretive Data Percent cell count reference ranges are not reported, since discordance with absolute values may lead to misinterpretation of CBC data. Current Interpretive Data was last revised on 2017. Testing performed by: [address] [address] Blood 03/17/2025 1:20 AM CDT 03/17/2025 1:30 AM CDT us Amanda Bustillos MD LAB BLOOD ORDERABLES F inal Result Performing Organization Address City/[facility]/ZIP Co de Phone Number [address] [place] [address] * (ABNORMAL) Thyroid Function Stephen (03/17/2025 1:20 AM CDT) TSH 0.27(L) 0.30 - 4.20 mcIUnit/mL Comment:Testing performed by : [address] [address] Blood 03/17/2025 1:20 AM CDT 03/17/2025 1:30 AM CDT us Amanda Bustillos MD LAB BLOOD ORDERABLES F inal Result [place] [address] [facility] [place] [address] * Urinalysis reflex to microscopic and culture Urine (03/17/2025 1:20 AM CDT) Color, ur Straw Yellow Comment:Testing performed by : [address] [address] Clarity, ur Clear Clear RYAN Comment:Testing performed by : [address], [place]., [address] Specific gravity, ur 1.008 1.003 - 1.030 RYAN Comment:Testing performed by : [address] [address] pH, urine 6.5 RYAN Comment: Interpretive Data U rine pH is affected by diet, medications, systemic acid-base disturbances, and renal tubular function. pH may affect urinary stone formation. For example, urine pH below 6.0 may help reduce the tendency for calcium phosphate stones and pH greater than 6.0 may reduce the tendency for uric acid stone formation. Source: [facility] [employer] Current Interpretive Data was last revised on 2017 Testing performed by: [address] [address] Protein, ur ql Negative Negative RYAN Comment:Testing performed by : [address] [address] Glucose, ur ql Negative Negative RYAN Comment:Testing performed by : [address] [address] Ketones, ur Negative Negative RYAN Comment:Testing performed by : [address] [address] Bilirubin, ur Negative Negative RYAN Comment:Testing performed by : [address] [address] Blood, ur Negative Negative RYAN Comment:Testing performed by : [address] [address] Urobilinogen, ur <2.0 <2.0 mg/dL RYAN Comment:Testing performed by : [address] [address] Nitrite, ur Negative Negative RYAN Comment:Testing performed by : [address] [address] Leukocyte esterase, ur Negative Negative RYAN Comment:Testing performed by : [address] [address] UA reflex comment Reflex conditions for microscopic UA and culture not met. RYAN ANGUIANO Comment:Testing performed by : [address] [address] Urine 03/17/2025 1:20 AM CDT 03/17/2025 1:30 AM CDT us Amanda Bustillos MD LAB MICROBIOLOGY - GEN ERAL ORDERABLES Final Result RYAN [address] [facility] [place] [address] * CBC with auto differential (03/17/2025 1:20 AM CDT) WBC 7.90 3.80 - 9.90 K/cumm Comment:Testing performed by : [address] [address] Hgb 13.2 11.9 - 15.5 g/dL RYAN Comment:Testing performed by : [address] [address] Hct 38.0 35.6 - 45.5 % RYAN Comment:Testing performed by : [address] [address] Plt 276 150 - 400 K/cumm RYAN Comment:Testing performed by : [address] [address] MPV 10.2 9.1 - 12.3 fL RYAN Comment:Testing performed by : [address] [address] RBC 4.21 3.90 - 5.20 M/cumm RYAN ANGUIANO Comment:Testing performed by : [address] [address] MCV 90.3 81.3 - 96.4 fL RYAN ANGUIANO Comment:Testing performed by : [address] [address] MCH 31.4 27.1 - 33.3 pg RYAN ANGUIANO Comment:Testing performed by : [address] [address] MCHC 34.7 32.3 - 35.7 g/dL RYAN ANGUIANO Comment:Testing performed by : [address], [address] RDW CV 11.9 11.1 - 14.9 % RYAN ANGUIANO Comment:Testing performed by : [address], [address] RDW SD 39.2 35.7 - 48.1 fL RYAN ANGUIANO Comment:Testing performed by : [address] [address] NRBC abs 0.00 0.00 - 0.01 K/cumm RYAN Comment:Testing performed by : [address], [address] Blood Venous blood specimen / Unknown 03/17/2025 1:20 AM CDT 03/17/2025 1:30 AM CDT Amanda Bustillos MD LAB BLOOD ORDERABLES F inal Result Performing Organization Address [facility] Co de Phone Number [address] [employer] [place], [place] [id number] * T3, free (03/17/2025 1:20 AM CDT) Free T3 3.3 2.0 - 4.4 pg/mL Blood 03/17/2025 1:20 AM CDT 03/17/2025 6:35 AM CDT Narrative RYAN - 03/17/2025 6:57 AM CDT This test was reflexed from a T4 result. Amanda Bustillos MD LAB BLOOD ORDERABLES F inal Result Performing Organization Address City/[facility] Co de Phone Number [address] [place] [place] [address] * T4, free (03/17/2025 1:20 AM CDT) Free T4 1.37 0.90 - 1.70 ng/dL Comment:Testing performed by : [address] [address] Blood 03/17/2025 1:20 AM CDT 03/17/2025 1:30 AM CDT Narrative RYAN - 03/17/2025 4:40 AM CDT This test was reflexed from a TSH result. Amanda Bustillos MD LAB BLOOD ORDERABLES F inal Result Performing Organization Address [facility] Co de Phone Number [address] [place] [place] [address] * Lipase (03/17/2025 1:20 AM CDT) Pathologist [facility] [place] Lipase 26 10 - 99 Units/L Comment:Testing performed by : [address] [address] Blood Venous blood specimen / Unknown 03/17/2025 1:20 AM CDT 03/17/2025 1:30 AM CDT us Amanda Bustillos MD LAB BLOOD ORDERABLES F inal Result Performing Organization Address [facility] de Phone Number [address] [address] * Comprehensive metabolic panel (03/17/2025 1:20 AM CDT) Pathologist [facility] [place] Sodium 141 135 - 145 mmol/L Comment:Testing performed by : [address] [address] Potassium, pl 4.1 3.3 - 4.9 mmol/L RYAN ANGUIANO Comment:Testing performed by : [address] [address] Chloride 104 97 - 110 mmol/L RYAN Comment:Testing performed by : [address] [address] CO2 27 22 - 32 mmol/L RYAN ANGUIANO Comment:Testing performed by : [address] [address] Anion gap 10 2 - 15 mmol/L RYAN Comment:Testing performed by : [address] [address] BUN 12 6 - 25 mg/dL RYAN Comment:Testing performed by : [address] [address] Creatinine 0.87 0.60 - 1.10 mg/dL RYAN Comment:Testing performed by : [address] [address] Glucose 111 70 - 199 mg/dL [facility] Comment: Interpretive Data Fasting glucose >/= 126 mg/dl is diagnostic for diabetes. Fasting is defined as no caloric intake for at least 8 hours. Fasting glucose between 100 mg/dl to 125 mg/dl is diagnostic of prediabetes. In a patient with classic symptoms of hyperglycemia or hyperglycemic crisis, a random glucose >/= 200 mg/dl is diagnostic for diabetes. In the absence of unequivocal hyperglycemia, results should be confirmed by repeat testing. The classification and Diagnosis of Diabetes Diabetes Care 202; 46: S19-S40. Current interpretive data was last revised 2022. Testing performed by: [address] [address] Calcium 9.7 8.5 - 10.3 mg/dL RYAN Comment:Testing performed by : [address] [address] Bilirubin, total 0.2 0.1 - 1.2 mg/dL RYAN Comment:Testing performed by : [address] [address] Protein, pl 7.3 6.5 - 8.5 g/dL RYAN Comment:Testing performed by : [address] [address] Albumin 4.6 3.5 - 5.0 g/dL RYAN Comment:Testing performed by : [address] [address] Alk phos 61 40 - 130 Units/L RYAN Comment:Testing performed by : [address] [address] ALT 43 7 - 45 Units/L RYAN ANGUIANO Comment:Testing performed by : [facility], [address] [place] [address]., [address] AST 26 10 - 45 Units/L RYAN ANGUIANO Comment:Testing performed by : [facility], [address] [place] [address]., [address] Blood 03/17/2025 1:20 AM CDT 03/17/2025 1:30 AM CDT us Amanda Bustillos MD LAB BLOOD ORDERABLES F inal Result RYAN [address] [place] [address] from Last 3 Months Insurance [facility] Advance Directives For more information, please contact: [phone] * Full Code (Latest Code Status on File) Date Activated Date Inactivated Comments 08/20/2023 6:32 PM 08/21/2023 9:33 PM * Full Code Date Activated Date Inactivated Comments 08/20/2023 5:12 PM 08/20/2023 6:32 PM * Full Code Date Activated Date Inactivated Comments 11/27/2020 3:33 PM 11/28/2020 5:00 PM * Full Code Date Activated Date Inactivated Comments 10/23/2020 4:35 PM 10/24/2020 1:56 PM Care Teams Electrophysiologist Relationship Specialty Start Date End Date Saúl Hernandez MD [address] [place] [address] PCP - General Family Medicine 05/25/23 Brook Orantes OD Optometry 10/05/19 Cory Mercedes MD Consulting Physician Endocrinology Diabetes & Metabolism 10/05/19 Saúl Isaac III, MD [address] [facility] [place] [address] Surgeon Ophthalmology 12/16/21
--- OUTSIDE RECORDS SUMMARY | 2025-04-11 15:43 | XMS_ITS | Encounter Summary ---
Author Organization [facility] Address [facility] [place] [address] Care Team Providers Care Director Machine Name Role Phone Jessica Bennett MD Primary Care Provider [phone] Shefali Herring MD Unavailable Prosper Welch MD Primary Care Provider [phone] None, Provider Primary Care Provider Unavaila ble Prosper Welch MD Primary Care Provider [phone] Encounter Details Date Type Department Care Team (Late st Contact Info) Description 10/26/2019 [employer] Message Enc [facility] Family Medicine [facility] [address] [place] [address] Jessica Bennett MD [address] [place] [address] RE: FW: FW: Other Social History Tobacco Use Types Packs/Day Years Used Date Smoking Tobacco: Every Day Cigarettes Smokeless Tobacco: Never Alcohol Use Standard Drinks/Week Comments Yes 0 (1 standard drink = 0.6 oz pur e alcohol) RARE AUDIT-C Answer Date Recorded Frequency of Alcohol Consumption Monthly or less 09/19/2019 Average Number of Drinks Not on file 020 Frequency of Binge Drinking Not on file 02/2020 Comments No Sex and Gender Information Value Date Recorded Sex Assigned at Not on file Legal Sex Female 6:45 PM CDT Gender Identity Not on file Sexual Orientation Not on file Occupation Industry Job Start Date Job End Date [employer] Not on file Not on file Not on file documented as of this encounter Progress Notes * Jessica Bennett MD - 10/26/2019 11:50 AM CST Thank you, Annabelle, for looking into this for Rickpiter. ~Dr Alvarado N ASSEMBLY MACHINE SET UP MECHANIC documented in this encounter Plan of Treatment Not on file documented as of this encounter Visit Diagnoses Not on filedocumented in this encounter Care Teams Director Machine Relationship Specialty Start Date End Date Jessica Bennett MD PCP - General FAMILY PRACTICE 12/02/17 11/14/19 Prosper Welch MD [address] [place] [address] [address] [place] [address] PCP - General FAMILY PRACTICE 11/15/19 04/07/22 Deny Hurley MD PCP - General 05/14/22 01/18/23 Prosper Welch MD [address] [place] [address] PCP - General FAMILY PRACTICE 01/19/23 Shefali Herring MD [address] [address] EP Vest Maker CLINICAL CARDIAC ELECTROPHYSIOLOGY 09/16/19 documented as of this encounter
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
--- OUTSIDE RECORDS SUMMARY | 2025-04-11 15:44 | XMS_ITS | Data Portability ---
[facility] Address [address] [place] [address] Assessment No assessment recorded. Plan of Treatment Reminders Order Date Submit Date Provider Last Modified By Organization Details Last Modified Time Details Appointments ANY 15 2024 10:15A Allison Hernandez MD Not available Not available Not available Lab TSH, serum or plasma [address], [address], [facility] [address], [place], [address], 04/07/2025 20:27:49 T4, free, serum [address], [address], [facility] [address], [place], [address], 04/09/2025 08:11:07 T3, free, serum or plasma [address], [address], [facility] [address], [place], [address], 04/09/2025 08:11:08 alpha-1-a ntitrypsi n (aat), QN, serum 2024 025 [facility], [address] [place] [address], [address], [address], 12/09/2024 11:14:14 iron + TIBC + ferritin, serum 2024 025 [facility], [address] [facility] [address], [address], [place], [address], 12/09/2024 11:14:15 lipid panel, serum 2023 024 [facility], [address] [facility] [address], [address], [place], [address], 09/02/2024 10:36:40 CBC w/ auto diff 2023 024 [facility], [address] [facility] [address], [address], [place], [address], 09/02/2024 10:36:[address] referral 2024 025 CATRACHITA Valladares MD, [address] [facility] [address], [place], [address], 04/10/2025 12:55:18 rheumatol ogist referral 2024 025 [facility], [address] [place] [address], [address], 04/10/2025 12:50:34 otolaryng ologist referral 2024 025 PATSY Conway MD, [address] [place], [address], 02/13/2025 08:22:[address] referral 2024 025 ry Valladares MD, [address], [place], [address], 01/13/2025 09:45:38 rheumatol ogist referral 2024 025 [facility], [facility] [place], [address], 01/13/2025 09:45:45 Procedures None recorded. Surgeries None recorded. Imaging CT, brain, w/o contrast 2024 [facility] Scheduling, [address] [facility] [address] [facility], [place], [address], 12/27/2024 15:17:06 Medication Orders dorzolami de 22.3 mg-timolo l 6.8 mg/mL eye drops [address] [facility], [address], [place], [place], [id number], 04/07/2025 12:12:12 ondansetr on 4 mg disintegr ating tablet 2024 [facility]38450, [address], [place], [place], [id number], 01/23/2025 18:51:09 ciproflox acin 500 mg tablet 2024 [facility], [address], [place], [place], [id number], 01/23/2025 18:50:41 Diflucan 100 mg tablet 2024 [facility] #96500, [address], [place], [place], [id number], 01/23/2025 18:50:54 meclizine 12.5 mg tablet 2024 [facility], [address], [place], [place], [id number], 01/23/2025 18:51:05 Medrol (Kartik) 4 mg tablets in a dose pack 2024 [facility] #46650, [address], [place], [place], [id number], 01/23/2025 18:51:16 clindamyc in HCl 150 mg capsule 2024 025 [facility]20, [address] [place], [place], [id number], 01/23/2025 18:50:43 famotidin e 20 mg tablet 2024 [address] [place] [address] [facility]80455, [address] [place], [place], [id number], 11/30/2024 15:09:29 phentermi ne 15 mg capsule 2023 025 [facility]44196, [address] [place], [place], [id number], 04/07/2025 12:00:09 Medrol (Kartik) 4 mg tablets in a dose pack 2023 [address] [place] [address] [facility]55228, [address] [place], [place], [id number], 01/23/2025 18:51:08 Patient TargetsNo targets recorded. Patient Instructions Encounter Date Encounter Id Patient Instructions Last Modified By Organization Details Last Modified Time 09/01/2024 [id number] A healthy lifestyle: care instructions Not available 09/01/2024 11:53:23 11/30/2024 [id number] A healthy lifestyle: care instructions Not available 11/30/2024 15:09:29 Reason for Referral Manager Case Referral for Pain of multiple joints Referring Physician: Nicko Hernandez [facility] Tomas, Encounter Date: 11/30/2024 Nurseryperson Referral fo r Vertigo Referring Physician: Family Tomas Patel, Encounter Date: 01/03/2025 Neurologist Referral for Reynaldo tigo Referring Physician: Family Tomas Patel, Encounter Date: 01/03/2025 Manager Case Referral for Pain of multiple joints Referring Physician: Family Tomas Patel, Encounter Date: 04/07/2025 Neurologist Referral for Reynaldo tigo Referring Physician: Nicko Hernandez, Family Medicine, Encounter Date: 04/07/2025 Results Created Date Observation Date Name Description Value Unit Range Abnormal Flag Note LastModifiedBy Organization Detail LastModifiedTime 09/01/20 24 09/02/2024 LIPID PANEL cholesterol, total 174 mg/dL 100-19 9 Not Available [facility] ([facility]) [address] [place], [address], 09/02/2024 10:36:40 09/01/20 24 09/02/2024 LIPID PANEL triglyceride s 82 mg/dL 0-149 Not Available [facility] ([facility]) [address] [place], [address], 09/02/2024 10:36:40 09/01/20 24 09/02/2024 LIPID PANEL HDL cholesterol 40 mg/dL >39 Not Available [facility] ([facility]) [address] [facility], [place], [address], 09/02/2024 10:36:40 09/01/20 24 09/02/2024 LIPID PANEL VLDL cholesterol stephany 15 mg/dL 5-40 Not Available [facility] ([facility]) [address] [place], [address], 09/02/2024 10:36:40 09/01/20 24 09/02/2024 LIPID PANEL LDL chol calc ([facility]) 119 mg/dL 0-99 above high normal Not Available [facility] ([facility]) [address] [place], [address], 09/02/2024 10:36:40 09/01/20 24 09/02/2024 CBC WITH DIFFE RENTI AL/PL ATELE T WBC 5.1 x10e3 /uL 3.4-10 .8 Not Available [facility] ([facility]) [address] [place], [address], 09/02/2024 10:36:41 09/01/20 24 09/02/2024 CBC WITH DIFFE RENTI AL/PL ATELE T RBC 4.29 x10e6 /uL 3.77-5 .28 Not Available [facility] ([facility]) [address] [facility], [place], [address], 09/02/2024 10:36:41 09/01/20 24 09/02/2024 CBC WITH DIFFE RENTI AL/PL ATELE T hemoglobin 13.6 g/dL 11.1-1 5.9 Not Available [facility] ([facility]) [address] [facility], [place], [address], 09/02/2024 10:36:41 09/01/20 24 09/02/2024 CBC WITH DIFFE RENTI AL/PL ATELE T hematocrit 39.6 % 34.0-4 6.6 Not Available [facility] ([facility]) [address] [facility], [place], [address], 09/02/2024 10:36:41 09/01/20 24 09/02/2024 CBC WITH DIFFE RENTI AL/PL ATELE T MCV 92 fL 79-97 Not Available [facility] ([facility]) [address] [place], [address], 09/02/2024 10:36:41 09/01/20 24 09/02/2024 CBC WITH DIFFE RENTI AL/PL ATELE T MCH 31.7 pg 26.6-3 3.0 Not Available [facility] ([facility]) [address] [place], [address], 09/02/2024 10:36:41 09/01/20 24 09/02/2024 CBC WITH DIFFE RENTI AL/PL ATELE T MCHC 34.3 g/dL 31.5-3 5.7 Not Available [facility] ([facility]) [address] [place], [address], 09/02/2024 10:36:41 09/01/20 24 09/02/2024 CBC WITH DIFFE RENTI AL/PL ATELE T RDW 11.7 % 11.7-1 5.4 Not Available [facility] ([facility]) [address] [facility], [place], [address], 09/02/2024 10:36:41 09/01/20 24 09/02/2024 CBC WITH DIFFE RENTI AL/PL ATELE T platelets 295 x10e3 /uL 150-45 0 Not Available [facility] ([facility]) [address] [facility], [place], [address], 09/02/2024 10:36:41 09/01/20 24 09/02/2024 CBC WITH DIFFE RENTI AL/PL ATELE T neutrophils 53 % notest ab. Not Available [facility] ([facility]) [address] [facility], [place], [address], 09/02/2024 10:36:41 09/01/20 24 09/02/2024 CBC WITH DIFFE RENTI AL/PL ATELE T lymphs 34 % notest ab. Not Available [facility] ([facility]) [address] [facility], [place], [address], 09/02/2024 10:36:41 09/01/20 24 09/02/2024 CBC WITH DIFFE RENTI AL/PL ATELE T monocytes 10 % notest ab. Not Available [facility] ([facility]) [address] [facility], [place], [address], 09/02/2024 10:36:41 09/01/20 24 09/02/2024 CBC WITH DIFFE RENTI AL/PL ATELE T eos 2 % notest ab. Not Available [facility] ([facility]) [address] [facility], [place], [address], 09/02/2024 10:36:41 09/01/20 24 09/02/2024 CBC WITH DIFFE RENTI AL/PL ATELE T basos 1 % notest ab. Not Available [facility] ([facility]) [address] [facility], [place], [address], 09/02/2024 10:36:41 09/01/20 24 09/02/2024 CBC WITH DIFFE RENTI AL/PL ATELE T neutrophils (absolute) 2.7 x10e3 /uL 1.4-7. 0 Not Available [facility] ([facility]) [address] [facility], [place], [address], 09/02/2024 10:36:41 09/01/20 24 09/02/2024 CBC WITH DIFFE RENTI AL/PL ATELE T lymphs (absolute) 1.8 x10e3 /uL 0.7-3. 1 Not Available [facility] ([facility]) [address] [facility], [place], [address], 09/02/2024 10:36:41 09/01/20 24 09/02/2024 CBC WITH DIFFE RENTI AL/PL ATELE T monocytes(ab solute) 0.5 x10e3 /uL 0.1-0. 9 Not Available [facility] ([facility]) [address] [facility], [place], [address], 09/02/2024 10:36:41 09/01/20 24 09/02/2024 CBC WITH DIFFE RENTI AL/PL ATELE T eos (absolute) 0.1 x10e3 /uL 0.0-0. 4 Not Available [facility] ([facility]) [address] [place], [address], 09/02/2024 10:36:41 09/01/20 24 09/02/2024 CBC WITH DIFFE RENTI AL/PL ATELE T baso (absolute) 0.1 x10e3 /uL 0.0-0. 2 Not Available [facility] ([facility]) [address] [place], [address], 09/02/2024 10:36:41 09/01/20 24 09/02/2024 CBC WITH DIFFE RENTI AL/PL ATELE T immature granulocytes 0 % notest ab. Not Available [facility] ([facility]) [address] [place], [address], 09/02/2024 10:36:41 09/01/20 24 09/02/2024 CBC WITH DIFFE RENTI AL/PL ATELE T immature grans (abs) 0.0 x10e3 /uL 0.0-0. 1 Not Available [facility] ([facility]) [address] [facility], [place], [address], 09/02/2024 10:36:41 12/09/19 25 12/09/2024 ALPHA -1-AN TITRY PSIN, SERUM wazno-2-zcnu trypsin, serum 93 mg/dL 100-18 8 below low normal Not Available [facility] ([facility]) [address] [place], [address], 12/09/2024 11:14:14 12/09/19 25 12/09/2024 FE+TI BC+FE R iron bind.cap.(TI BC) 279 ug/dL 250-45 0 Not Available [facility] ([facility]) [address] [place], [address], 12/09/2024 11:14:15 12/09/19 25 12/09/2024 FE+TI BC+FE R UIBC 164 ug/dL 131-42 5 Not Available [facility] ([facility]) [address] [place], [address], 12/09/2024 11:14:15 12/09/19 25 12/09/2024 FE+TI BC+FE R iron 115 ug/dL 27-159 Not Available [facility] ([facility]) [address] [place], [address], 12/09/2024 11:14:15 12/09/19 25 12/09/2024 FE+TI BC+FE R iron saturation 41 % 15-55 Not Available [facility] ([facility]) [address], [place], [address], 12/09/2024 11:14:15 12/09/19 25 12/09/2024 FE+TI BC+FE R ferritin 94 NG/mL 15-150 Not Available [facility] ([facility]) [address] [facility], [place], [address], 12/09/2024 11:14:15 12/28/[address], head, w/o contr ast [facility] [address] [facility] [address] [address] [place] [address] [facility] [address] [facility] [place] [address] CT HEAD WITHOU T CONTRA ST Exam date: 025 2:11 PM Clinic al histor y: Dizzin ess Techni que: 3 mm collim ated axial images of the head were obtain ed withou t contra st. A dose loweri ng techni que was used for this proced ure, which may includ e, but is not limite d to, dose reduct ion techni que, automa marlene exposu re contro l, the use of iterat cassia recons tructi on, and ALARA (As Low As Reason ably Achiev able) / Image Gently techni ques. Compar norman: review ed withou t prior studie s availa ble for compar norman. FINDIN GS: Images of the head demons trate no eviden ce of acute or chroni c intrac ranial hemorr dickson. No masses or mass effect s are seen. The ventri cles and sulci are symmet tommy. There is no eviden ce of midlin e shift. There is normal perdomo-w kashif differ entiat ion throug hout. No extra- axial fluid collec tions are eviden t. Bone window s reveal the parana sid sinuse s and mastoi d air cells to appear clear. There is no eviden ce of fractu re. IMPRES ROSEMARIE: No acute findin gs Ordere d By: NICKO HERNANDEZ Electr onical ly Signed By: Gilberto alvarez MD on 2:11 PM Interp reted By: Gilberto alvarez MD, 2:11 PM [email or web address] [facility] [address], [place], [address], 12/27/2024 15:16:16 12/28/19 25 12/27/2024 CT, brain , w/o contr ast No observ ation record ed. [facility] [address] [facility], [place], [address], 12/27/2024 15:26:45 Result Notes Documentation Provider Name and Address Organization Details Recorded Time Ct, Head, W/o Contrast : [facility] [address] [place] [address] [facility] [address] [place] [address] CT HEAD WITHOUT CONTRAST Exam date: 12/27/2024 2:11 PM Clinical history: Dizziness Technique: 3 mm collimated axial images of the head were obtained without contrast. A dose lowering technique was used for this procedure, which may include, but is not limited to, dose reduction technique, automated exposure control, the use of iterative reconstruction, and ALARA (As Low As Reasonably Achievable) / Image Gently techniques. Comparison: reviewed without prior studies available for comparison. FINDINGS: Images of the head demonstrate no evidence of acute or chronic intracranial hemorrhage. No masses or mass effects are seen. The ventricles and sulci are symmetric. There is no evidence of midline shift. There is normal perdomo-white differentiation throughout. No extra-axial fluid collections are evident. Bone windows reveal the paranasal sinuses and mastoid air cells to appear clear. There is no evidence of fracture. IMPRESSION: No acute findings Ordered By: NICKO HERNANDEZ Interpreted By: Gilberto Mendez MD, 12/27/2024 2:11 PM Nicko Hernandez MD Attn: Accounting,[address] [facility], [place], [address], [place] [facility] 12/27/2024 15:16:16 Problems Name Problem SNOMED Code Status Onset Date Resolution Date Notes Provider Name and Address Organization Details Recorded Time Overweight 994790784 Active 2022 Nicko Hernandez MD Attn: Dirk leslie,[address] [facility], [place], [address], [place] [facility] 3 12:43:30 Hypothyroidism 20677393 Active 2022 Nicko Hernandez MD Attn: Dirk g,[address] [facility], [place], [address], [place] [facility] 3 12:43:31 Depressive disorder 56222945 Active 2022 Nicko Hernandez MD Attn: Dirk leslie,[address] [facility], [place], [address], [place] [facility] 3 12:43:32 Generalized anxiety disorder 23470301 Active 2022 Nicko Hernandez MD Attn: Dirk leslie,[address] [facility], [place], [address], [place] [facility] 3 12:43:32 Posttraumatic stress disorder 99763045 Active 2022 Nicko Hernandez MD Attn: Dirk leslie,[address] 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, [place], [address], [place] [facility] 3 12:43:36 Mild intermittent asthma 369552238 Active 2022 Nicko Hernandez MD Attn: Dirk leslie,[address] [facility], [place], [address], [place] [facility] 3 12:43:37 Cholesterol screening Active 2022 Nicko Hernandez MD Attn: Dirk leslie,[address] [facility], [place], [address], [place] [facility] 3 12:43:38 Goiter 8015256 Active 2022 Nicko Hernandez MD Attn: Dirk mariama,[address] [facility], [place], [address], [place] [facility] 3 12:43:42 Pain of multiple joints 23821311 Active 2022 Nicko Hernandez MD Attn: Dirk leslie,[address] [facility], [place], [address], [place] [facility] 3 12:43:43 Gastroesophage al reflux disease without esophagitis 937600901 Active 2022 Nicko Hernandez MD Attn: Dirk leslie,[address] [place], [address], [place] [facility] 3 12:43:45 Neuropathy 348430096 Active 2022 Nicko Hernandez MD Attn: Dirk leslie,[address] [facility], [place], [address], [place] [facility] 3 15:18:32 Seasonal allergic rhinitis 042271861 Active 2022 Nicko Hernandez MD Attn: Dirk leslie,[address] [place], [address], [place] [facility] 3 15:18:33 Obesity 071578199 Active 2022 Nicko Hernandez MD Attn: Dirk leslie,[address] [place], [address], [place] [facility] 3 15:18:35 Low back pain 893211475 Active 2022 Nicko Hernandez MD Attn: Dirk leslie,[address] [place], [address], [place] [facility] 3 16:35:48 Prolapsed lumbar intervertebral disc 892677051 Active 2022 Nicko Hernandez MD Attn: Dirk leslie,[address], [place], [address], [facility] - [facility] 3 12:31:10 Tension-type headache 058955186 Active 2023 Nicko Hernandez MD Attn: Dirk leslie,[address] [facility], [place], [address], [facility] - [facility] 4 17:05:33 Nausea 740805654 Active 2023 Nicko Hernandez MD Attn: Dirk leslie,[address] [facility], [place], [address], [facility] - [facility] 4 17:05:34 Problem Notes None recorded. Procedures Surgical History Date Name Laterality Status Provider Name and Address Organization Details Recorded Time Eye Surgery completed Dominique Cooper [facility] 02/17/2023 11:54:03 Tonsillectomy completed Dominique Cooper [facility] 02/17/2023 11:54:09 Imaging Results None recorded. Procedure Notes None recorded. Medical Equipment None Reported. Allergies Allergen ID Allergen Name Allergen Category Reaction Reaction Severity Criticality Documentation Date Start Date Code Code System Note Provider Name and Address Organization Details Recorded Time 665776 bacitraci n / neomycin / polymyxin B medicatio n Not available Not available Not available 02/17/2023 87818 9 [facility] 11:58:42 205919 sertralin e medicatio n Not available Not available Not available 02/17/2023 88583 [facility] 11:58:49 Medications Name Sig Start Date Stop Date Status Note LastModified by Organization Details LastModified Time id now influenza a & b 2 test kit TEST DIRECTED TODAY 03/15 completed Not Available Not Available Not Available cyclobenzap rine 10 mg tablet TAKE 1 TABLET BY MOUTH THREE TIMES DAILY FOR 7 DAYS NEEDED 01/23 completed Not Available Not Available Not Available fluconazole 100 mg tablet TAKE 1 TABLET BY MOUTH EVERY DAY FOR 5 DAYS 01/23 completed Not Available Not Available Not Available methocarbam ol 500 mg tablet 11/19 /2024 completed Not Available Not Available Not Available levothyroxi ne 137 mcg tablet TAKE 1 TABLET BY MOUTH EVERY DAY active Not Available Not Available No t Available triamcinolo ne acetonide 0.5 % topical cream APPLY TOPICALLY TO THE AFFECTED AREA TWICE DAILY FOR 10 DAYS 08/02 completed Not Available Not Available Not Available azithromyci n 250 mg tablet TAKE 2 TABLETS BY MOUTH FOR 1 DAY THEN TAKE 1 TABLET BY MOUTH EVERY DAY 02/17 completed Not Available Not Available Not Available fluconazole 150 mg tablet TAKE 1 TABLET BY MOUTH EVERY 72 HOURS 01/23 completed Not Available Not Available Not Available valacyclovi r 1 gram tablet TAKE 1 TABLET BY MOUTH EVERY 12 HOURS FOR 10 DAYS 01/23 completed Not Available Not Available Not Available hydrocodone 5 mg-acetamin ophen 325 mg tablet TAKE 1 TABLET BY MOUTH EVERY 6 HOURS NEEDED 01/23 completed Not Available Not Available Not Available fluconazole 200 mg tablet TAKE 1 TABLET BY MOUTH EVERY 72 HOURS 02/28 completed Not Available Not Available Not Available meloxicam 15 mg tablet TAKE 1 TABLET BY MOUTH DAILY 08/02 completed Not Available Not Available Not Available prednisone 20 mg tablet TAKE 2 TABLETS BY MOUTH DAILY FOR 5 DAYS 08/02 completed Not Available Not Available Not Available phentermine 15 mg capsule TAKE 1 CAPSULE BY MOUTH EVERY DAY 04/07 completed Not Available Not Available Not Available clindamycin HCl 150 mg capsule TAKE 1 CAPSULE BY MOUTH EVERY 6 HOURS FOR 7 DAYS 01/23 completed Not Available Not Available Not Available meclizine 12.5 mg tablet TAKE 1 TABLET BY MOUTH THREE TIMES DAILY 01/23 completed Not Available Not Available Not Available metronidazo le 500 mg tablet TAKE 1 TABLET BY MOUTH EVERY 12 HOURS FOR 7 DAYS 02/28 completed Not Available Not Available Not Available ciprofloxac in 500 mg tablet TAKE 1 TABLET BY MOUTH TWICE DAILY FOR 5 DAYS 01/23 completed Not Available Not Available Not Available sulfamethox azole 800 mg-trimetho prim 160 mg tablet TAKE 1 TABLET BY MOUTH TWICE DAILY FOR 7 DAYS 02/17 completed Not Available Not Available Not Available tramadol 50 mg tablet TAKE 1 TABLET BY MOUTH EVERY 6 HOURS 02/28 completed Not Available Not Available Not Available triamcinolo ne acetonide 0.1 % topical cream APPLY TOPICALLY TO THE AFFECTED AREA TWICE DAILY FOR 7 DAYS 02/17 completed Not Available Not Available Not Available ketorolac 10 mg tablet 02/17 completed Not Available Not Available Not Available oxycodone-a cetaminophe n 5 mg-325 mg tablet TAKE 1 TABLET BY MOUTH EVERY 6 HOURS NEEDED FOR PAIN 02/28 completed Not Available Not Available Not Available propranolol 10 mg tablet Take 1 tablet twice a day by oral route for 30 days. 08/02 completed Not Available Not Available Not Available famotidine 20 mg tablet TAKE 1 TABLET BY MOUTH TWICE DAILY active Not Available Not Available No t Available cephalexin 500 mg capsule TAKE 1 CAPSULE BY MOUTH TWICE DAILY FOR 10 DAYS 08/02 completed Not Available Not Available Not Available lidocaine 5 % topical patch APPLY 1 PATCH TOPICALLY TO THE SKIN EVERY DAY. MAY WEAR UP TO 12 HOURS 02/28 completed Not Available Not Available Not Available orphenadrin e citrate ER 100 mg tablet,exte nded release 02/28 completed Not Available Not Available Not Available dorzolamide 22.3 mg-timolol 6.8 mg/mL eye drops INSTILL 1 DROP INTO AFFECTED EYE(S) BY OPHTHALMI C ROUTE 2 TIMES PER DAY 2024 active Not Available Not Available Not Avai lable ceftriaxone 500 mg solution for injection INJECT 500 MG FOR 1 DOSE 07/24 completed Not Available Not Available Not Available bisacodyl 5 mg tablet,deion yed release TAKE 2 TABLET BY MOUTH DAILY NEEDED FOR CONSTIPAT ION IF NO RESULTS 24 HOURS AFTER MILK OF MAGNESIA 02/28 completed Not Available Not Available Not Available gabapentin 100 mg capsule 08/02 completed Not Available Not Available Not Available ibuprofen 600 mg tablet TAKE 1 TABLET BY MOUTH THREE TIMES DAILY NEEDED FOR CRAMPING active Not Available Not Available No t Available methylpredn isolone 4 mg tablets in a dose pack FOLLOW PACKAGE DIRECTION S 01/23 completed Not Available Not Available Not Available albuterol sulfate HFA 90 mcg/actuati on aerosol inhaler Inhale 2 puffs every 4 hours by inhalatio n route as needed for 30 days. 2023 active Not Available Not Available Not Avai lable ondansetron 4 mg disintegrat ing tablet DISSOLVE 1 TABLET ON THE TONGUE THREE TIMES DAILY NEEDED 01/23 completed Not Available Not Available Not Available naproxen 500 mg tablet TAKE 1 TABLET BY MOUTH TWICE DAILY WITH MEALS 02/28 completed Not Available Not Available Not Available amoxicillin 875 mg-andrea higgins clavulanate 125 mg tablet TAKE 1 TABLET BY MOUTH EVERY 12 HOURS FOR 7 DAYS 11/30 completed Not Available Not Available Not Available oxycodone 5 mg tablet 02/28 completed Not Available Not Available Not Available duloxetine 60 mg capsule,del ayed release TAKE 1 CAPSULE BY MOUTH DAILY 02/17 completed Not Available Not Available Not Available pregabalin 50 mg capsule TAKE 1 CAPSULE BY MOUTH TWICE DAILY 02/28 completed Not Available Not Available Not Available pregabalin 75 mg capsule TAKE 1 CAPSULE BY MOUTH TWICE DAILY 05/19 completed Not Available Not Available Not Available Banophen 50 mg capsule TAKE 1 CAPSULE BY MOUTH THREE TIMES DAILY 08/02 completed Not Available Not Available Not Available ID NOW COVID-19 Test Kit TEST DIRECTED TODAY 02/28 completed Not Available Not Available Not Available Vitals Date Recorded Body height Body mass index (BMI) Body weight Oxygen saturation Oxygen saturation in Arterial blood by Pulse oximetry Heart rate Systolic And Diastolic Provider Name and Address Organization Details Last Updated DateTime 5 157.48 cm 31.5 kg/m2 54936.6 4 g 99 % 99 % 75 /min 120/72 mm[Hg] Dominique Cooper [place] [facility] 5 14:52:28 Date Recorded Body height Body mass index (BMI) Body weight Oxygen saturation Oxygen saturation in Arterial blood by Pulse oximetry Heart rate Systolic And Diastolic Provider Name and Address Organization Details Last Updated DateTime 5 157.48 cm 32.2 kg/m2 89186.0 1 g 99 % 99 % 76 /min 120/78 mm[Hg] Gael Matrinez [place] [facility] 5 13:56:43 Date Recorded Body height Body mass index (BMI) Body weight Oxygen saturation Oxygen saturation in Arterial blood by Pulse oximetry Heart rate Systolic And Diastolic Provider Name and Address Organization Details Last Updated DateTime 5 157.48 cm 32.2 kg/m2 93394.0 1 g 98 % 98 % 79 /min 118/70 mm[Hg] Dominique Cooper MA [facility] 5 13:58:53 Date Recorded Body height Body mass index (BMI) Body weight Oxygen saturation Oxygen saturation in Arterial blood by Pulse oximetry Heart rate Systolic And Diastolic Provider Name and Address Organization Details Last Updated DateTime 5 157.48 cm 32.4 kg/m2 51544.2 g 99 % 99 % 78 /min 122/70 mm[Hg] Dominique Cooper MA [facility] 5 11:37:35 Date Recorded Body height Body mass index (BMI) Body weight Oxygen saturation Oxygen saturation in Arterial blood by Pulse oximetry Heart rate Systolic And Diastolic Provider Name and Address Organization Details Last Updated DateTime 4 157.48 cm 30.6 kg/m2 92765.7 3 g 99 % 99 % 71 /min 116/70 mm[Hg] Dominique Cooper MA [facility] 4 11:00:42 Social History Question Answer Notes LastModified by [employer] Details LastModified Time Tobacco Smoking Status Former Smoker Dominique Cooper [facility], [facility] 02/17/2023 11:55:19 What Is Your Level Of Caffeine Consumption? None [email or web address] Information not available 03/15/2024 What Was The Date Of Your Most Recent Tobacco Screening? 04/07/2025 Information not available 04/07/2025 Has Tobacco Cessation Counseling Been Provided? Yes Information not available 03/15/2024 On What Date Was Tobacco Cessation Counseling Provided? 04/07/2025 Information not available 04/07/2025 Sex: Female Functional Status Question Answer Note LastModified by [employer] ion Details LastModified Time Do you use any illicit or recreational drugs? No [email or web address] Information not available 03/15/2024 Do you or have you ever used any other forms of tobacco or nicotine? Yes Information not available 02/17/2023 What is your level of alcohol consumption? None Information not available 02/17/2023 Do you or have you ever used smokeless tobacco? Never used smokeless tobacco Information not available 03/15/2024 Do you or have you ever used e-cigarettes or vape? Current user of electronic cigarettes Information not available 02/17/2023 Mental Status None recorded. Family History Relationship Description Onset Age of this Age Resolved Age Notes LastModified by Organization Details LastModified Time Mother Heart disease [email or web address] Not available 2022 11:54:19 Mother Migraine [email or web address] Not availabl e 02/17/2023 11:54:38 Father Hypertensive disorder [email or web address] Not available 2022 11:54:25 Father Depressive disorder [email or web address] Not available 2022 11:54:45 Father Asthma [email or web address] Not availabl e 12/15/2023 12:11:59 Brother Migraine [email or web address] Not availab le 02/17/2023 11:54:38 Medical History Condition Response Coronary Artery Disease N Other N Atrial Fibrillation N High Blood Pressure N Thyroid Problems Y Kidney or Bladder Problems N GI Problems N Depression Y COPD N Blood Clots N Eating Disorder N Skin Problems N Anemia N Heart Attack (PA) N Anxiety Disorder Y Diabetes N Muscle, Joint, or Bone Problems Y Seizures/Epilepsy N Acid Reflux (GERD) Y Cancer N Stroke N Asthma Y Allergies Y ADHD N Substance Abuse N High Cholesterol N Hepatitis N Liver Disease N Schizophrenia N Headaches Y Heart Failure N Osteoporosis N Gynecological HistoryNo gynecological history recorded. Obstetrics History GPAL:G 0 P 0 0 0 0 Immunizations Vaccine Type Date Status Note Provider Nam e and Address Organization Details Recorded Time influenza, unspecified formulation 9 completed Not Available [facility] 04/07/2025 11:33:17 DTaP 3 completed Not Available [facility] 04/07/2025 11:33:17 IPV 3 completed Not Available [facility] 04/07/2025 11:33:17 MMR 3 completed Not Available [facility] 04/07/2025 11:33:17 influenza, unspecified formulation 3 completed Not Available [facility] 04/07/2025 11:33:17 meningococcal MCV4P 5 completed Not Available [facility] 04/07/2025 11:33:17 Tdap 2 completed Not Available [facility] 04/07/2025 11:33:17 Past Encounters Encounter ID Performer Location Encounter Start Date Encounter Closed Date Diagnosis/Indication Diagnosis SNOMED-CT Code Diagnosis ICD10 Code Diagnosis Note [id number] Nicko Hernandez MD [facility] [address] [address] 02/17/2023 11:41:55 02/18/2023 08:57:55 Overweight 778548948 E66.3 conditon chroinc and not at goal ocnitnue dietary management . Hypothyroidism 40963094 E03.9 condition chronic and at goal refill the levothyrox ine for 90 days and 3 refills. order tsh Depressive disorder 5388 1870 F32.A condition chroinc and not at goal refer to psychiatry and [facility] counceling order cbc, cmp Generalize d anxiety disorder 72514701 F41.1 conditon chroinc and not at goal refer to psychiatry and [facility] counceling Posttrauma tic stress disorder 06228882 F43.10 conditon chroinc adn not at goal [facility] counceling . 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 Gastroesop hageal reflux disease without esophagitis 049424912 K21.9 conditon chroinc adn not at goal order pepcid 20 mg bid [id number] Nicko Hernandez MD [facility] [address] [address] 03/19/2023 14:38:47 03/23/2023 15:28:35 Generalized anxiety disorder 45978799 F41.1 conditon chroinc and not at goal refer to psychiatry and [facility] counceling Depressive disorder 3548 9007 F32.A condition chroinc and not at goal refer to psychiatry and [facility] counceling Gastroesop hageal reflux disease without esophagitis 681020296 K21.9 conditon chroinc adn not at goal order pepcid 20 mg bid Hypothyroidism 68667508 E03.9 condition chronic and at goal refill the levothyrox ine for 90 days and 3 refills. Mild inter mittent asthma 438143387 J45.20 conditon chroinc and at goal refill the albuterol inhaler Posttrauma tic stress disorder 08782860 F43.10 conditon chroinc adn not at goal [facility] counceling . Obesity 009008632 E66.9 condition chronic nad not at goal continue low fat diet. Seasonal a llergic rhinitis 618359760 J30.2 conditon chroinc adn not at goal continue hte rene order medrol dose pack with 3 refills Neuropathy 986919419 G62 .9 conditoin chronic and not at goal refer to [place] [facility] [id number] Nicko Hernandez MD [address] [address] 06/10/2023 15:27:40 06/15/2023 11:05:47 Depressive disorder 70031654 F32.A condition chroinc and not at goal refer to psychiatry and [facility] counceling Gastroesop hageal reflux disease without esophagitis 442297359 K21.9 conditon chroinc adn not at goal order pepcid 20 mg bid Generalize d anxiety disorder 85745867 F41.1 conditon chroinc and not at goal refer to psychiatry and [facility] counceling Goiter 2571204 E04.9 conditoin chroinc and not at goal order thyroid us Hypothyroidism 28918425 E03.9 condition chronic and at goal refill the levothyrox ine for 90 days and 3 refills. Mild inter mittent asthma 913281947 J45.20 conditon chroinc and at goal refill the albuterol inhaler Neuropathy 459754756 G62 .9 conditoin chronic and not at goal refer to [place] [facility] Seasonal a llergic rhinitis 797005524 J30.2 conditon chroinc adn not at goal continue hte rene order medrol dose pack with 3 refills Low back pain 710142834 M54.50 condition chronic and not at goal order xray l/s spine [id number] Nicko Hernandez MD [facility] [address] [place] [address] 07/10/2023 11:46:49 07/13/2023 10:20:56 Depressive disorder 43723923 F32.A condition chroinc and not at goal refer to psychiatry and [facility] counceling Gastroesop hageal reflux disease without esophagitis 503006286 K21.9 conditon chroinc adn not at goal order pepcid 20 mg bid Hypothyroidism 79792436 E03.9 condition chronic and at goal refill the levothyrox ine for 90 days and 3 refills. Mild inter mittent asthma 935642853 J45.20 conditon chroinc and at goal refill the albuterol inhaler Seasonal a llergic rhinitis 938795994 J30.2 conditon chroinc adn not at goal continue hte rene Prolapsed lumbar intervertebral disc 148511101 M51.26 condition chroinc and not at goal order mri l/s spine start lyrica 50 mg bid [id number] Nicko Hernandez MD [facility] [address] [place] [address] 07/24/2023 16:17:57 07/27/2023 10:40:05 Low back pain 709738606 M54.50 condition chronic and not at goal with left sciatiaca adn hernitated disc. order lidoderm patcha and restart the lyrica. ok for surgery Depressive disorder 3548 9007 F32.A condition chroinc and not at goal refer to psychiatry and [facility] counceling Gastroesop hageal reflux disease without esophagitis 366557914 K21.9 conditon chroinc adn not at goal order pepcid 20 mg bid Generalize d anxiety disorder 60887983 F41.1 conditon chroinc and not at goal refer to psychiatry and [facility] counceling Hypothyroidism 37771407 E03.9 condition chronic and at goal refill the levothyrox ine for 90 days and 3 refills. Prolapsed lumbar intervertebral disc 572191204 M51.26 condition chroinc and not at goal ok for surgery Mild inter mittent asthma 510906179 J45.20 conditon chroinc and at goal continue the albuterol inhaler [id number] Nicko Hernandez MD [facility] [address] [facility] [address] [place] [address] 09/02/2023 14:04:58 09/03/2023 12:56:45 Gastroesophageal reflux disease without esophagitis 562152292 K21.9 conditon chroinc adn not at goal order pepcid 20 mg bid Mild inter mittent asthma 262810935 J45.20 conditon chroinc and at goal continue the albuterol inhaler Generalize d anxiety disorder 52213648 F41.1 conditon chroinc and not at goal refer to psychiatry and [facility] counceling Prolapsed lumbar intervertebral disc 306412049 M51.26 condition chroinc and at goal post op stable Hypothyroidism 80330822 E03.9 condition chronic and at goal continue the levothyrox ine [id number] Nicko Hernandez MD [facility] [address] [facility] [address] [place] [address] 12/02/2023 14:55:55 12/03/2023 10:54:22 Mild intermittent asthma 851581290 J45.20 conditon chroinc and at goal refill the albuterol inhaler wtih 3 refills. my rx Seasonal a llergic rhinitis 421416696 J30.2 conditon chroinc adn not at goal continue hte rene my rx Hypothyroidism 04888615 E03.9 condition chronic and at goal continue the levothyrox ine my rx orer tsh, t3, t4 Gastroesop hageal reflux disease without esophagitis 849833096 K21.9 conditon chroinc adn not at goal order pepcid 20 mg bid my rx Depressive disorder 3548 9007 F32.A condition chroinc and not at goal refer to psychiatry and [facility] counceling Generalize d anxiety disorder 13444520 F41.1 conditon chroinc and not at goal refer to psychiatry and [facility] counceling Posttrauma tic stress disorder 27096558 F43.10 conditon chroinc adn not at goal [facility] counceling . Neuropathy 719854521 G62 .9 conditoin chronic and not at goal refer to dr leslie [id number] Nicko Hernandez MD [facility] [address] [place] [address] 03/15/2024 15:46:52 03/18/2024 14:25:40 Inflammation of sacroiliac joint 49434861 M46.1 condition acute refer to dr lópez Prolapsed lumbar intervertebral disc 075084610 M51.26 condition chroinc and at goal post op stable will be following with a new neurosurge on Seasonal a llergic rhinitis 804831711 J30.2 conditon chroinc adn not at goal continue hte rene my rx Hypothyroidism 12038454 E03.9 condition chronic and at goal continue the levothyrox ine my rx orer tsh, t3, t4 Gastroesop hageal reflux disease without esophagitis 091045460 K21.9 conditon chroinc adn not at goal order pepcid 20 mg bid my rx Generalize d anxiety disorder 31192692 F41.1 conditon chroinc and not at goal refer to psychiatry and [facility] counceling Depressive disorder 3548 9007 F32.A condition chroinc and not at goal refer to psychiatry and [facility] counceling Mild inter mittent asthma 087426605 J45.20 conditon chroinc and at goal refill the albuterol inhaler [id number] Nicko Hernandze MD [facility] [address] [facility] [address] [place] [address] 04/21/2024 16:13:42 04/22/2024 09:59:08 Essential tremor 281711545 G25.0 conditoin chronic adn not at goal start propranalo l 10 mg refer to neurology at [facility] Hypothyroidism 30354653 E03.9 condition chronic and at goal continue the levothyrox ine my rx Gastroesop hageal reflux disease without esophagitis 682758765 K21.9 conditon chroinc adn not at goal order pepcid 20 mg bid my rx Depressive disorder 3548 9007 F32.A condition chroinc and not at goal refer to psychiatry and [facility] counceling Mild inter mittent asthma 437825418 J45.20 conditon chroinc and at goal continue the albuterol inhaler order cbc, cmp Obesity 630602743 E66.9 condition chronic nad not at goal continue low fat diet. Nausea 666194158 R11.0 conditon chronic and not at goal order zofran odt 4 mg tid Tension-type headache 39 6676144 G44.209 condiotn chronic and not at goal refill the methacarba nol [id number] Nicko Hernandez MD [facility] [place] [facility] [address] [facility] [address] [place] [address] 08/02/2024 09:12:29 08/03/2024 14:49:17 Hypothyroidism 31658183 E03.9 condition chronic and at goal continue the levothyrox ine my rx Gastroesop hageal reflux disease without esophagitis 733656389 K21.9 conditon chroinc adn not at goal order pepcid 20 mg bid my rx Obesity 770481083 E66.9 condition chronic nad not at goal continue low fat diet. order adipex 15 mg per day Mild inter mittent asthma 645649085 J45.20 conditon chroinc and at goal continue the albuterol inhaler Prolapsed lumbar intervertebral disc 129807203 M51.26 condition chroinc and at goal post op stable will be following with a new neurosurge on Seasonal a llergic rhinitis 196164563 J30.2 conditon chroinc adn not at goal continue hte rene my rx Depressive disorder 2318 9007 F32.A condition chroinc and not at goal refer to psychiatry and [facility] counceling Renewal of prescription 874385549 Z76.0 [id number] Nicko Hernandez MD [facility] [place] [facility] [address] [facility] [address] [place] [address] 09/01/2024 10:33:46 09/12/2024 13:18:20 Mild intermittent asthma 479033010 J45.20 conditon chroinc and at goal continue the albuterol inhaler order cbc Obesity 011954154 E66.9 condition chronic nad not at goal continue low fat diet. order adipex 15 mg per day Prolapsed lumbar intervertebral disc 005600963 M51.26 condition chroinc and at goal post op stable will be following with a new neurosurge on order medrol dose pack Hypothyroidism 21086216 E03.9 condition chronic and at goal continue the levothyrox ine my rx Generalize d anxiety disorder 47794975 F41.1 conditon chroinc and not at goal refer to psychiatry and [facility] counceling Cholesterol screening 27 3322814 Z13.220 order lipid panel [id number] Nciko Hernandez MD [facility] [place] [address] [facility] [address] [place] [address] 11/30/2024 14:43:55 12/01/2024 12:24:40 Pain of multiple joints 25304961 M25.50 conditon chroinc adn not at goal refer to [place] [facility] Iron defic iency anemia 93695035 D50.9 condiotn chronic nad not at goal order iron panel Mild inter mittent asthma 950997208 J45.20 conditon chroinc and at goal continue the albuterol inhaler Prolapsed lumbar intervertebral disc 675863210 M51.26 condition chroinc and at goal post op stable will be following with a new neurosurge on is scheduled for 2 more surgeries. Obesity 059462590 E66.9 condition chronic nad not at goal continue low fat diet. d/c adipex 15 mg per day Gastroesop hageal reflux disease without esophagitis 486412498 K21.9 conditon chroinc adn not at goal order pepcid 20 mg bid my rx Alpha-1-an titrypsin deficiency 68757973 E88.01 mother is carrir. order alpha 1 antitrypsi n level Hypothyroidism 97952630 E03.9 condition chronic and at goal continue the levothyrox ine my rx [id number] Nicko Hernandez MD [facility] [place] [facility] [address] [facility] [address] [facility] [address] 12/27/2024 13:47:49 12/29/2024 10:37:59 Vertigo 286628542 R42 condition acute meclizine 12.5 mg tid, medrol dose pack order ct brain without contrast stat Mild inter mittent asthma 435113557 J45.20 conditon chroinc and at goal continue the albuterol inhaler Gastroesop hageal reflux disease without esophagitis 073022599 K21.9 conditon chroinc adn not at goal order pepcid 20 mg bid my rx Depressive disorder 3548 9007 F32.A condition chroinc and not at goal refer to psychiatry and sif counceling Generalize d anxiety disorder 63180188 F41.1 conditon chroinc and not at goal refer to psychiatry and sif counceling Nausea 575300569 R11.0 conditon acute and not at goal order zofran odt 4 mg tid Cat scratch - wound 2831 91224 T14.8XXA conditon acute clindamyci n for 7 days. [id number] Nicko Hernandez MD [facility] [place] [facility] [address] [facility] [address] [place] [address] 01/03/2025 13:51:55 01/04/2025 11:29:56 Vertigo 868475674 R42 condition acute no improvemen t with meds vik ct brain was normal refer ot dr conway ent and refer to neurology at [facility] Acute urin yasmine tract infection 663902203 N39.0 condition acute order cipro for 5 days. diflucan for 5 days Nausea 855846315 R11.0 conditon acute and at goal refill zofran odt 4 mg tid Gastroesop hageal reflux disease without esophagitis 319875281 K21.9 conditon chroinc adn at goal continue pepcid 20 mg bid my rx Mild inter mittent asthma 701773668 J45.20 conditon chroinc and at goal continue the albuterol inhaler [id number] Nicko Hernandez MD [facility] [place] [facility] [place] [place] [address] [facility] [address] [place] [address] 04/07/2025 11:30:40 04/10/2025 08:04:06 Pain of multiple joints 05643208 M25.50 conditon chroinc adn not at goal refer to [place] [facility] Vertigo 675869481 R42 condition acute no improvemen t with meds vik ct brain was normal refer to neurology at [facility] Hypothyroidism 54773847 E03.9 condition chronic and at goal continue the levothyrox ine my rx order tsh, t3, t4 Seasonal a llergic rhinitis 141276595 J30.2 conditon chroinc adn not at goal continue hte rene my rx Gastroesop hageal reflux disease without esophagitis 903824022 K21.9 conditon chroinc adn at goal continue pepcid 20 mg bid my rx Mild inter mittent asthma 520777776 J45.20 conditon chroinc and at goal refill the albuterol inhaler Renewal of prescription 994456066 Z76.0 Health Concerns Section Related Observation LastModified by Organization Detai ls LastModified Time None Recorded Concern Status LastModified by Organization Details LastModified Time None Recorded Advance Directives Directive None Recorded Payers Insurance Date Sequence Insurance Name Policy Number Policy Lindsey Covered Member ID Lindsey Member ID Guarantor Name 11/30/2024 1 [place] [id number] Starr Espinoza [id number] Starr Espinoza 11/30/2024 2 [facility] ON OR AFTER 03/14/21 (MEDICAID REPLACEMENT - HMO) Starr Espinoza [id number] Starr Espinoza 01/27/2025 2 [place] [id number] Starr Espinoza [id number] Starr Espinoza 04/07/2025 1 [place] [employer] [place] [employer] Starr Espinoza [id number] Starr Espinoza 11/30/2024 1 [facility] (MEDICARE REPLACEMENT/AD VANTAGE - HMO) Starr Espinoza [id number] Starr Espinoza 04/07/2025 1 [facility] - DOS ON OR AFTER 21 (MEDICAID REPLACEMENT - HMO) Starr Espinoza [id number] Starr Espinoza 11/30/2024 2 [facility] - DOS ON OR AFTER 21 (MEDICAID REPLACEMENT - HMO) Starr Espinoza [id number] Starr Espinoza 11/30/2024 2 [facility] - DOS ON OR AFTER 21 (MEDICAID REPLACEMENT - O) Starr Espinoza [id number] Starr Espinoza OBGyn Episode No OBEpisode recorded.
--- OUTSIDE RECORDS SUMMARY | 2025-04-11 15:44 | XMS_ITS | Data Portability ---
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 perforatio n, expulsion, infection with IUD. Pt educated on risks Vs benefits of use, and reviewed ACHES symptoms. Importance of daily administra tion within the same 30 minute time frame reinforced to pt, and on use of condoms or abstinence if dosing schedule is interrupte d. Refills sent. Plan to F/U PRN or at next [facility]. Cyst of left ovary [id number] 63537 0222765 N83.202 2.4cm left ovarian cyst hemorrhagi cWill repeat u/s at [facility] in 8 weeks to ensure resolution [id number] MARGI Daniel [facility] [address] [place] [address] 04/21/2024 14:31:15 04/21/2024 15:22:44 Gynecologic examination 03285404 Z01.419 28y.o. here for annual exam. - Pap UTD - RTO PRN or annual Depression screening 171 036841 Z13.31 See depression intake screening tool Screening for malignant neoplasm of breast [id number] Z12.39 Client advised to perform self-breas t exams and report any changes. Cyst of left ovary 65262 11444 5727047 N83.202 Discussed resolution of previous 2.4cm cyst on today's ultrasound Irregular periods 282253 07 N92.6 Discussed u/s findings from todayDiscu ssed possibilit y of uterine polyp and possibilit y of needing an HSCWill schedule consult with Dr. Powers to discuss further [id number] Rosa Powers MD [facility] [address] [place] [address] 05/21/2024 11:55:22 05/21/2024 12:52:28 Excessive menstruation with irregular cycle 212320931 N92.1 assess the labs below Ultrasound scan abnormal 606999251 R93.89 rounded structure seen on pelvic ultrasound endometriu m, disc possible fibroid vs polypAdvis e hysterosco py to be scheduled with possible removal of polyp/Myos ure [id number] Rosa Powers MD [facility] [address] [place] [address] 11/22/2024 16:25:24 11/28/2024 13:19:35 Ultrasound scan abnormal [id number] R93.89 rounded structure seen on pelvic ultrasound endometriu m, disc possible fibroid vs polypAdvis e hysterosco py to be scheduled with possible removal of polyp/Myos ure Health Concerns Section Related Observation LastModified by Organization Detai ls LastModified Time None Recorded Concern Status LastModified by Organization Details LastModified Time None Recorded Advance Directives Directive None Recorded Payers Insurance Date Sequence Insurance Name Policy Number Policy Lindsey Covered Member ID Lindsey Member ID Guarantor Name 02/14/2025 2 [place] [id number] Heaven Olga [id number] Heaven Olga 02/14/2025 1 [place] [id number] Heaven Olga [id number] Heaven Olga 12/05/2024 1 [facility] (MEDICARE REPLACEMENT/ ADVANTAGE - HMO) Heaven Olga [id number] Heaven Olga 01/27/2024 1 [employer] [employer] [id number] Heaven Olga [id number] Heaven Olga 03/16/2025 1 [place] Heaven Olga [id number] Heaven Olga 12/14/2024 3 [place] [id number] Heaven Olga [id number] Heaven Olga OBGyn Episode No OBEpisode recorded.
--- OUTSIDE RECORDS SUMMARY | 2025-04-11 15:44 | XMS_ITS | Referral Summary ---
Author Organization [facility] Address [address] [place] [address] Care Team Providers Care Billing Coordinator Name Role Phone Brook Orantes LASHELL Unavailable [phone] Cory Mercedes MD Unavailable [phone] Poncho DUMONT MD, Saúl White Unavailable Saúl Hernandez MD Primary Care Provider [phone] Encounters Date Type Department Care Team Description 03/17/2025 3:05 AM CDT - 03/17/2025 6:01 AM CDT Emergency [facility] [address] [place], [place] [id number] Amanda Bustillos MD Other migraine without status migrainosus, not intractable (Primary Dx); Abdominal pain, generalized; Intermittent lightheadedness Discharge Disposition: Discharge to home or self care 02/28/2025 2:15 PM CDT Office Visit [facility] [address], [address] [place] [address] Austin Ramos MD Thyroid eye disease (Primary Dx) from Last 3 Months Allergies Active Allergy Reactions Criticality Noted Date Comments Adhesive Rash,Blisters High 11/24/2016 Paper tape can cause rash too Bacitracin Swelling,Rash Medium 11/09/2016 Lidocaine Unknown 12/16/2021 Patient states she is not sure when this got added. She has been using lidocaine patches without issue. 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 Pt [...] compliance. Assessment & Plan (08/29/2019 5:51 PM SERVER ASSISTANT): IOPs at [facility] today. Switch from Timolol [...] cessation. Assessment & Plan (08/29/2019 5:54 PM SERVER ASSISTANT): Patient has been established with Endocrinology - [...] mo. Assessment & Plan (08/29/2019 5:53 PM SERVER ASSISTANT): Pt is known to Oculoplastics - orbital decompression discussed per patient- thought to be in active phase still. No surgery is planned at this time. Assessment & Plan (02/04/2019 5:15 PM CDT): left eye (OS)>OD. Stressed importance of dc smoking with patient. See plan above. Dry cornea of both eyes due to Graves' disease 0 02/04/2019 Assessment & Plan (08/29/2019 5:51 PM SERVER ASSISTANT): Recommend appropriate re-wetting drops OTC. Recommend Celluvisc [...] Resolved Date Papilledema of both eyes 12/09/2016 Social History Tobacco Use Types Packs/Day Years Used Date Smoking Tobacco: Former Cigarettes 0.5 8.2 2 015 - 11/12/2022 Smokeless Tobacco: Never Tobacco Cessation:Counseling Given: Not Answered Alcohol Use Standard Drinks/Week Comments Yes 0 (1 standard drink = 0.6 oz pur e alcohol) rare Inbox Utilities Answer Date Recorded In the past 12 months has e electric, gas, oil, or water company threatened to shut off services in your [...] often do you attend chur ch or yarsani services? Never 08/21/2023 Do you belong to any clubs o r organizations such as sikhism groups, unions, fraternal or athletic groups, or [...] place to sleep or slept in a jail (including now)? No 08/21/2023 Personal Safety Answer Date Recorded Have you ever been in or are you currently in a harmful physical or emotional relationship or is someone making you feel afraid or unsafe? Denies 03/17/2025 Comments No Sex and Gender Information Value Date Recorded Sex Assigned at Not on file Legal Sex Female 9:51 AM SERVER ASSISTANT Gender Identity Not on file Sexual Orientation [...] 03/17/2025 1:10 AM CDT Plan of Treatment Not on file Procedures Procedure Name Priority Date/Time Associated Diagnosis [...] Warren Nevarez M.D. AR: JATINDER Report ID: [id number] Reading Location: [id number] Procedure Note Warren Nevarez MD - 03/17/2025 [...] Warren Nevarez M.D. AR: JATINDER Report ID: [id number] Reading Location: [id number] Amanda Bustillos MD IMG CT PROCEDURES Kaitlynn [...] Warren Nevarez M.D. AR: JATINDER Report ID: [id number] Reading Location: [id number] Procedure Note Warren Nevarez MD - 03/17/2025 [...] Warren Nevarez M.D. AR: JATINDER Report ID: [id number] Reading Location: [place] [address] Amanda Bustillos MD IMG CT PROCEDURES Kaitlynn l Result * (ABNORMAL) Drugs of Abuse Screen, Urine without Confirmation (03/17/2025 4:11 AM CDT) [facility] Amphetamine, ur Not Detected CutOff 500ng/mL Comment: Interpretive Data - Amphetamines: Samples containing greater than 500 ng/mL d-methamphetamine or other cross-reacting amphetamine compounds are reported as positive. Amphetamine immunoassays are subject to significant false positive rates due to cross-reactivity of non-amphetamine drugs. Confirmatory testing required for definitive results. Current Interpretive Data was last reviewed 2023. Testing performed by: [address] [address] Barbiturates, ur Not Detected CutOff 200ng/mL RYAN Comment: Interpretive Data - Barbiturates: Samples containing greater than 200 ng/mL secobarbital or other cross-reacting barbiturate compounds are reported as positive. False positive and false negative results are possible. Confirmatory testing required for definitive results. Current Interpretive Data was last reviewed 2023. Testing performed by: [address] [address] Benzodiazepines, ur Not Detected CutOff 100ng/mL RYAN Comment: Interpretive Data - Benzodiazepines: Samples containing greater than 100 ng/mL nordiazepam or other cross-reacting compounds are reported as positive. False positive and false negative results are possible. Confirmatory testing required for definitive results. Current Interpretive Data was last reviewed 2023. Testing performed by: [facility], [address] [place] [address]., [address] Cannabinoids, ur Screen Positive, presumptive (A) CutOff 50 ng/mL [facility] Comment: Interpretive Data - Cannabinoids: Samples containing greater than 50 ng/mL delta-9 THC -COOH or other cross- reacting compounds are reported as positive. False positive and false negative results are possible. Confirmatory testing required for definitive results. Current Interpretive Data was last reviewed 2023. Testing performed by: [address] [address] Cocaine, ur Not Detected CutOff 150ng/mL [facility] Comment: Interpretive Data - Cocaine: Samples containing greater than 150 ng/mL benzoylecgonine or other cross- reacting compounds are reported as positive. False positive and false negative results are possible. Confirmatory testing required for definitive results. Current Interpretive Data was last reviewed 2023. Testing performed by: [address] [address] Fentanyl, Ur Not Detected CutOff 5 ng/mL [facility] Comment: Interpretive Data - Fentanyl: Samples containing greater than 1 ng/mL fentanyl or other cross-reacting fentanyl compounds are reported as positive. False positive and false negative results are possible. Confirmatory testing required for definitive results. Current Interpretive Data was last reviewed 2023. Testing performed by: [address] [address] Methadone, ur Not Detected CutOff 300ng/mL [facility] Comment: Interpretive Data - Methadone: Samples containing greater than 300 ng/mL d,l-methadone or other cross-reacting compounds are reported as positive. False positive and false negative results are possible. Confirmatory testing required for definitive results. Current Interpretive Data was last reviewed 2023. Testing performed by: [address] [address] Opiates, ur Not Detected CutOff 300ng/mL [facility] Comment: Interpretive Data - Opiates: Samples containing greater than 300 ng/mL morphine or other cross-reacting compounds are reported as positive. False positive and false negative results are possible. Confirmatory testing required for definitive results. Current Interpretive Data was last reviewed 2023. Testing performed by: [address] [address] Oxycodone, ur Not Detected CutOff 100ng/mL RYAN Comment: Interpretive Data - Oxycodone: Samples containing greater than 100 ng/mL oxycodone or other cross-reacting compounds are reported as positive. False positive and false negative results are possible. Confirmatory testing required for definitive results. Current Interpretive Data was last reviewed 2023. Testing performed by: [address] [address] Phencyclidine, ur Not Detected CutOff 25 ng/mL RYAN Comment: Interpretive Data - Phencyclidine: Samples containing greater than 25 ng/mL phencyclidine or other cross-reacting compounds are reported as positive. False positive and false negative results are possible. Confirmatory testing required for definitive results. Current Interpretive Data was last reviewed 2023. Testing performed by: [address] [address] Urine Creatinine 68 mg/dL RYAN Comment: Interpretive Data Urine Creatinine: < 10 mg/dL is extremely dilute = or > 10 but < 20 mg/dL is dilute = or > 20 mg/dL is normal Current Interpretive Data was last revised on 2017. Testing performed by: [address] [address] Urine 03/17/2025 4:11 AM CDT 03/17/2025 4:17 AM CDT Narrative RYAN - 03/17/2025 4:41 AM CDT Drug of Abuse screening is performed by immunoassay for medical purposes only. This is not to be used for Pain Management purposes. us Amanda Bustillos MD LAB URINE ORDERABLES F inal Result RYAN [address] [facility] Department [place] [address] * POCT hCG, urine (03/17/2025 1:27 AM CDT) HCG, ur, POC Negative Negative Lot Number [id number] QC Backgroud Clear Acceptable QC Control Line Acceptable Urine 03/17/2025 1:27 AM CDT us Amanda Bustillos MD POINT OF CARE TEST ORD ERABLES Final Result * eGFR (03/17/2025 1:20 AM CDT) eGFR >90 >=60 mL/min/1. 73 m2 Comment: [...] was last reviewed 2021. Testing performed by: [address] [address] Blood 03/17/2025 1:20 AM CDT 03/17/2025 1:30 AM CDT us Amanda Bustillos MD LAB BLOOD ORDERABLES F inal Result [id number] [address] [facility] Department [place] [address] * Differential, auto (03/17/2025 1:20 AM CDT) Neutrophil abs 3.85 1.50 - 6.50 K/cumm Comment:Testing performed by : [address] [address] Imm gran abs 0.02 0.00 - 0.10 K/cumm [facility] Comment:Testing performed by : [address], [place]., [address] Lymphocyte abs 3.12 0.80 - 3.30 K/cumm [facility] Comment:Testing performed by : [address], [place]., [address] Monocyte abs 0.71 0.20 - 0.80 K/cumm [facility] Comment:Testing performed by : [address], [place]., [address] Eosinophil abs 0.14 0.00 - 0.50 K/cumm [facility] Comment:Testing performed by : [address], [place]., [address] Basophil abs 0.06 0.00 - 0.10 K/cumm [facility] Comment:Testing performed by : [address] [address] Neutrophil pct 48.6 % [facility] Comment: Interpretive Data Percent cell count reference ranges are not reported, since discordance with absolute values may lead to misinterpretation of CBC data. Current Interpretive Data was last revised on 2017. Testing performed by: [address] [address] Imm gran pct 0.3 % [facility] Comment: Interpretive Data Percent cell count reference ranges are not reported, since discordance with absolute values may lead to misinterpretation of CBC data. Current Interpretive Data was last revised on 2017. Testing performed by: [address] [address] Lymphocyte pct 39.5 % [facility] Comment: Interpretive Data Percent cell count reference ranges are not reported, since discordance with absolute values may lead to misinterpretation of CBC data. Current Interpretive Data was last revised on 2017. Testing performed by: [address] [address] Monocyte pct 9.0 % [facility] Comment: Interpretive Data Percent cell count reference ranges are not reported, since discordance with absolute values may lead to misinterpretation of CBC data. Current Interpretive Data was last revised on 2017. Testing performed by: [address] [address] Eosinophil pct 1.8 % [facility] Comment: Interpretive Data Percent cell count reference ranges are not reported, since discordance with absolute values may lead to misinterpretation of CBC data. Current Interpretive Data was last revised on 2017. Testing performed by: [address] [address] Basophil pct 0.8 % RYAN Comment: Interpretive Data Percent cell count reference ranges are not reported, since discordance with absolute values may lead to misinterpretation of CBC data. Current Interpretive Data was last revised on 2017. Testing performed by: [address] [address] Blood 03/17/2025 1:20 AM CDT 03/17/2025 1:30 AM CDT us Amanda Bustillos MD LAB BLOOD ORDERABLES F inal Result Performing Organization Address [facility] Co de Phone Number [address] [email or web address] [place] [address] * (ABNORMAL) Thyroid Function [place] (03/17/2025 1:20 AM CDT) Pathologist [facility] TSH 0.27(L) 0.30 - 4.20 mcIUnit/mL Comment:Testing performed by : [address] [address] Blood 03/17/2025 1:20 AM CDT 03/17/2025 1:30 AM CDT Amanda Bustillos MD LAB BLOOD ORDERABLES F inal Result Performing Organization Address City/[facility] Co de Phone Number [address] [employer] [place], [place] [id number] * Urinalysis reflex to microscopic and culture Urine (03/17/2025 1:20 AM CDT) Color, ur Straw Yellow Comment:Testing performed by : [address] [address] Clarity, ur Clear Clear RYAN Comment:Testing performed by : [facility], [address] [place] [address], [place]., [address] Specific gravity, ur 1.008 1.003 - 1.030 RYAN Comment:Testing performed by : [address], [place]., [address] pH, urine 6.5 RYAN Comment: Interpretive Data U rine pH is affected by diet, medications, systemic acid-base disturbances, and renal tubular function. pH may affect urinary stone formation. For example, urine pH below 6.0 may help reduce the tendency for calcium phosphate stones and pH greater than 6.0 may reduce the tendency for uric acid stone formation. Source: [facility] [employer] Current Interpretive Data was last revised on 2017 Testing performed by: [address], [place]., [address] Protein, ur ql Negative Negative RYAN Comment:Testing performed by : [address] [address] Glucose, ur ql Negative Negative RYAN Comment:Testing performed by : [address] [address] Ketones, ur Negative Negative RYAN Comment:Testing performed by : [address] [address] Bilirubin, ur Negative Negative RYAN Comment:Testing performed by : [address] [address] Blood, ur Negative Negative RYAN Comment:Testing performed by : [address] [address] Urobilinogen, ur <2.0 <2.0 mg/dL RYAN Comment:Testing performed by : [address] [address] Nitrite, ur Negative Negative RYAN Comment:Testing performed by : [address] [address] Leukocyte esterase, ur Negative Negative RYAN Comment:Testing performed by : [address], [place]., [address] UA reflex comment Reflex conditions for microscopic UA and culture not met. RYAN ANGUIANO Comment:Testing performed by : [address] [address] Urine 03/17/2025 1:20 AM CDT 03/17/2025 1:30 AM CDT us Amanda Bustillos MD LAB MICROBIOLOGY - GEN ERAL ORDERABLES Final Result RYAN [address] [facility] Department [place] [address] * CBC with auto differential (03/17/2025 1:20 AM CDT) WBC 7.90 3.80 - 9.90 K/cumm Comment:Testing performed by : [address] [address] Hgb 13.2 11.9 - 15.5 g/dL RYAN ANGUIANO Comment:Testing performed by : [address] [address] Hct 38.0 35.6 - 45.5 % RYAN ANGUIANO Comment:Testing performed by : [address] [address] Plt 276 150 - 400 K/cumm RYAN Comment:Testing performed by : [address] [address] MPV 10.2 9.1 - 12.3 fL RYAN ANGUIANO Comment:Testing performed by : [address] [address] RBC 4.21 3.90 - 5.20 M/cumm RYAN ANGUIANO Comment:Testing performed by : [address] [address] MCV 90.3 81.3 - 96.4 fL RYAN ANGUIANO Comment:Testing performed by : [address] [address] MCH 31.4 27.1 - 33.3 pg RYAN ANGUIANO Comment:Testing performed by : [address] [address] MCHC 34.7 32.3 - 35.7 g/dL RYAN ANGUIANO Comment:Testing performed by : [address] [address] RDW CV 11.9 11.1 - 14.9 % RYAN ANGUIANO Comment:Testing performed by : [address] [address] RDW SD 39.2 35.7 - 48.1 fL RYAN Comment:Testing performed by : [address] [address] NRBC abs 0.00 0.00 - 0.01 K/cumm RYAN Comment:Testing performed by : [address] [address] Blood Venous blood specimen / Unknown 03/17/2025 1:20 AM CDT 03/17/2025 1:30 AM CDT Amanda Bustillos MD LAB BLOOD ORDERABLES F inal Result Performing Organization Address City/[facility]/ZIP Co de Phone Number RYAN [address] [email or web address] [place] [address] * T3, free (03/17/2025 1:20 AM CDT) Free T3 3.3 2.0 - 4.4 pg/mL Blood 03/17/2025 1:20 AM CDT 03/17/2025 6:35 AM CDT Narrative RYAN - 03/17/2025 6:57 AM CDT This test was reflexed from a T4 result. Amanda Bustillos MD LAB BLOOD ORDERABLES F inal Result [address] [employer] [place] [address] * T4, free (03/17/2025 1:20 AM CDT) Free T4 1.37 0.90 - 1.70 ng/dL Comment:Testing performed by : [address] [address] Blood 03/17/2025 1:20 AM CDT 03/17/2025 1:30 AM CDT Narrative RYAN - 03/17/2025 4:40 AM CDT This test was reflexed from a TSH result. Amanda Bustillos MD LAB BLOOD ORDERABLES F inal Result Performing Organization Address City/[facility]/ZIP Co de Phone Number [address] [place] [address] * Lipase (03/17/2025 1:20 AM CDT) Lipase 26 10 - 99 Units/L Comment:Testing performed by : [address] [address] Blood Venous blood specimen / Unknown 03/17/2025 1:20 AM CDT 03/17/2025 1:30 AM CDT Amanda Bustillos MD LAB BLOOD ORDERABLES F inal Result Performing Organization Address [facility] Co de Phone Number [address] [address] * Comprehensive metabolic panel (03/17/2025 1:20 AM CDT) Sodium 141 135 - 145 mmol/L Comment:Testing performed by : [address] [address] Potassium, pl 4.1 3.3 - 4.9 mmol/L RYAN Comment:Testing performed by : [address] [address] Chloride 104 97 - 110 mmol/L RYAN Comment:Testing performed by : [address] [address] CO2 27 22 - 32 mmol/L RYAN Comment:Testing performed by : [address] [address] Anion gap 10 2 - 15 mmol/L RYAN Comment:Testing performed by : [address] [address] BUN 12 6 - 25 mg/dL [facility] Comment:Testing performed by : [address] [address] Creatinine 0.87 0.60 - 1.10 mg/dL RYAN Comment:Testing performed by : [address] [address] Glucose 111 70 - 199 mg/dL [facility] Comment: Interpretive Data Fasting glucose >/= [...] was last revised 2022. Testing performed by: [address] [address] Calcium 9.7 8.5 - 10.3 mg/dL [facility] Comment:Testing performed by : [address] [address] Bilirubin, total 0.2 0.1 - 1.2 mg/dL [facility] Comment:Testing performed by : [address] [address] Protein, pl 7.3 6.5 - 8.5 g/dL [facility] Comment:Testing performed by : [address] [address] Albumin 4.6 3.5 - 5.0 g/dL [facility] Comment:Testing performed by : [address] [address] Alk phos 61 40 - 130 Units/L [facility]:Testing performed by : [address] [address] ALT 43 7 - 45 Units/L [facility] Comment:Testing performed by : [address] [address] AST 26 10 - 45 Units/L RYAN ANGUIANO Comment:Testing performed by : [facility], [address] [place] [address]., [address] Blood 03/17/2025 1:20 AM CDT 03/17/2025 1:30 AM CDT us Amanda Bustillos MD LAB BLOOD ORDERABLES F inal Result RYAN [address] [facility] Department [place] [address] from Last 3 Months Insurance [facility] Advance Directives For more information, please contact: [phone] * Full Code (Latest Code Status on File) Date Activated Date Inactivated Comments 08/20/2023 6:32 PM 08/21/2023 9:33 PM * Full Code Date Activated Date Inactivated Comments 08/20/2023 5:12 PM 08/20/2023 6:32 PM * Full Code Date Activated Date Inactivated Comments 11/27/2020 3:33 PM 11/28/2020 5:00 PM * Full Code Date Activated Date Inactivated Comments 10/23/2020 4:35 PM 10/24/2020 1:56 PM Care Teams Billing Coordinator Relationship Specialty Start Date End Date Saúl Hernandez MD [address] [address] PCP - General Family Medicine 05/25/23 Brook Orantes OD Optometry 10/05/19 Cory Mercedes MD Consulting Physician Endocrinology Diabetes & Metabolism 10/05/19 Saúl Isaac III, MD [address] [id number] Surgeon Ophthalmology 12/16/21
--- OUTSIDE RECORDS SUMMARY | 2025-04-11 15:44 | XMS_ITS | Data Portability ---
Author Organization [facility] [place] Address [address] [place] [address] Care Team Providers Care Refractory Mixer Name Role Phone BEBETO SARABIA Primary Care Provider Assessment No assessment recorded. Plan of Treatment Reminders Order Date Submit Date Provider Last Modified By Organization Details Last Modified Time Details Appointments None recorded. Lab None recorded. Referral None recorded. Procedures None recorded. Surgeries None recorded. Imaging US, pelvis, complete 2021 022 [email or web address] [place], [address], [place], [address], 15:26:58 Medication Orders None recorded. Patient TargetsNo targets recorded. Patient InstructionsNo instructions recorded. Reason for Referral None Reported. Results Created Date Observation Date Name Description Value Unit Range Abnormal Flag Note LastModifiedBy Organization Detail LastModifiedTime 09/23/19 22 09/23/2021 CULTU RE: URINE result report SEE RESULT S BELOW Test: Cultu re: Urine Speci men Sourc e: Urine Voide d Speci men Type: Urine Speci men Date: 2021 1:55 PM Resul t Date: 2021 6:10 AM Resul t Statu s: Final resul t Abnor mal: No Resul ting Lab: [facility] [address] [facility] [address] Tel: [phone] CULTU RE ----- ----- ----- --- No growt h in 1 day (dete ction level of 10,00 0 colon ies / ml.) Not Available [facility] (Lab) [address], [place], [address], 09/25/2021 07:15:08 09/23/19 22 09/23/2021 urina lysis , dipst ick Leukocytes normal Not Available [facility] samuel [address], [place], [address], 09/23/2021 13:12:38 09/23/19 22 09/23/2021 urina lysis , dipst ick Nitrite normal Not Available [place] [address], [place], [address], 09/23/2021 13:12:38 09/23/19 22 09/23/2021 urina lysis , dipst ick Urobilinogen normal Not Available [facility] [address], [place], [address], 09/23/2021 13:12:38 09/23/19 22 09/23/2021 urina lysis , dipst ick Protein normal Not Available [place] [address], [place], [address], 09/23/2021 13:12:38 09/23/19 22 09/23/2021 urina lysis , dipst ick pH normal Not Available [place] [address], [place], [address], 09/23/2021 13:12:38 09/23/19 22 09/23/2021 urina lysis , dipst ick Specific [place] normal Not Available [facility] [address], [place], [address], 09/23/2021 13:12:38 09/23/19 22 09/23/2021 urina lysis , dipst ick Ketone normal Not Available [place] [address], [place], [address], 09/23/2021 13:12:38 09/23/19 22 09/23/2021 urina lysis , dipst ick Bilirubin normal Not Available Chely barnard [address], [place], [address], 09/23/2021 13:12:38 09/23/19 22 09/23/2021 urina lysis , dipst ick Glucose normal Not Available [place] [address], [place], [address], 09/23/2021 13:12:38 09/23/19 22 09/23/2021 urina lysis , dipst ick Appearance normal Not Available [facility] [address], [place], [address], 09/23/2021 13:12:38 09/23/19 22 09/23/2021 urina lysis , dipst ick Color normal Not Available [place] [address], [place], [address], 09/23/2021 13:12:38 09/23/19 22 09/23/2021 pregn olya test, urine HCG negati ve Not Available [place] [address], [place], [address], 09/23/2021 13:11:52 09/25/1909/25/2021 MAMMO , unila teral , left and US, breas t, left No observ ation record ed. [facility] [address] [facility], [place], [address], 09/25/2021 13:54:40 Result Notes None recorded. Problems Name Problem SNOMED Code Status Onset Date Resolution Date Notes Provider Name and Address Organization Details Recorded Time Breast lump [id number] Completed 201210/15/2020 Breast Lump Or Mass;Rec orded Elsewher e: No [facility] E[facility] Academic Affairs Dean dain: N Practi ce ID: [id number] Job lable Time: 02:30:00 PM Ana mccormick, [facility] 1 14:03:15 Speciali gaviotad medical examinat ion Completed 201210/15/2020 Gynecolo gical Examinat ion;Eric rded Elsewher e: No Locat ion[facility] Pract[facility] ce ID: [id number] Job lable Time: 02:30:00 PM Ana mccormick, [facility] 14:03:38 Screenin g for malignan t neoplasm of cervix Completed 201210/15/2020 Screenin g for malignan t neoplasm s of the cervix;R ecorded Elsewher e: No Locat ion[facility] Practi ce ID: [id number] Job lable Time: 02:30:00 PM Ana mccormick, [facility] 14:03:35 At increase d risk of sexually transmit marlene infectio n [id number] Completed 201210/15/2020 Contact with or exposure to venereal diseases ;Recorde d Elsewher e: No Locat ion: [facility] S ource: EHR Academic Affairs Dean dain: N Practi ce ID: [id number] Job lable Time: 02:30:00 PM Ana mccormick, [facility] 1 14:03:13 Right lower quadrant pain [id number] Completed 201210/15/2020 Abdomina l pain, right lower quadrant ;Recorde d Elsewher e: No Locat ion: [facility] S ource: EHR Academic Affairs Dean dain: N Practi ce ID: [id number] Job lable Time: 03:30:00 PM Ana mccormick, [facility] 14:03:31 Adult health examinat ion Completed 201210/15/2020 Routine Medical Exam;Rec orded Elsewher e: No [facility] EHR Academic Affairs Dean dain: N Hubertti ce ID: [id number] Job lable Time: 03:30:00 PM Ana mccormick [facility] 14:03:10 Amenorrh ea [id number] Completed 201210/15/2020 Absence of menstrua tion;Rec orded Elsewher e: No [facility] EHR Academic Affairs Dean dain: N Hubertti ce ID: 0001 Job lable Time: 03:30:00 PM Ana mccormick [facility] 14:03:12 Right upper quadrant pain [id number] Completed 201210/15/2020 Abdomina l pain, right upper quadrant ;Practic e ID: 0001 [facility] 14:03:33 Female genital organ symptoms [id number] Completed 201210/15/2020 Unspecif ied symptom associat ed with female genital organs;R ecorded Elsewher e: No Locat ion: [facility] S ource: EHR Academic Affairs Dean dain: N Hubertti ce ID: 0001 Job lable Time: 04:00:00 PM Ana mccormick [facility] 14:03:19 Vaginiti s and vulvovag initis Completed 201310/15/2020 Vaginiti s;Record ed Elsewher e: No Locat ion: [facility] S ource: EHR Academic Affairs Dean dain: N Hubertti ce ID: 0001 Job lable Time: 01:30:00 PM Ana mccormick [facility] 14:03:44 Obesity [id number] Completed 201310/15/2020 Obesity; Recorded Elsewher e: No Locat ion: Chely barnard [facility] S ource: EHR Academic Affairs Dean dain: N Practi ce ID: 0001 Job lable Time: 04:15:00 PM Ana mccormick [facility] 14:03:27 Disease [id number] Completed 201510/15/2020 Other specifie d conditio ns associat ed with female genital organs and menstrua l cycle;Re corded Elsewher e: No Locat ion: [facility] ource: EHR Academic Affairs Dean dain: N Practi ce ID: 0001 Job lable Time: 01:30:00 PM Ana mccormick [facility] 14:03:21 Urinary tract infectio us disease [id number] Completed 201510/15/2020 Urinary tract infectio n, site not specifie d;Record ed Elsewher e: No Locat ion: [facility] S ource: EHR Academic Affairs Dean dain: N Practi ce ID: 0001 Job lable Time: 01:30:00 PM Ana mccormick [facility] 14:03:42 Infectio n screenin g Completed 201510/15/2020 Encounte r for screenin g for oth infec/pa rastc diseases ;Recorde d Elsewher e: No Locat ion: [facility] S ource: EHR Academic Affairs Dean dain: N Practi ce ID: 0001 Job lable Time: 01:30:00 PM Ana mccormick [facility] 14:03:26 Vaginola bial hernia Completed 201510/15/2020 Other specifie d noninfla mmatory disorder s of vagina;R ecorded Elsewher e: No [facility] E[facility] Academic Affairs Dean dain: N Practi ce ID: 0001 Job lable Time: 01:30:00 PM Ana mccormick [facility] 14:03:47 Syphilis test finding [id number] Completed 201510/15/2020 Encntr screen for infectio ns w sexl mode of transmis s;Record ed Elsewher e: No [facility] E[facility] Academic Affairs Dean dain: N Hubertti ce ID: 0001 Job lable Time: 01:30:00 PM Ana mccormick [facility] 14:03:40 Cyst of ovary Completed 201610/15/2020 Unspecif ied ovarian cyst, unspecif ied side;Rec orded Elsewher e: No Locat ion: [facility] S ource: EHR Academic Affairs Dean dain: N Roselyn ce ID: 0001 Job lable Time: 08:15:00 AM Ana mccormick [facility] 14:03:[address] Concept Completed 201610/15/2020 Encntr for general adult medical exam w/o abnormal findings ;Recorde d Elsewher e: No Locat ion: [facility] S ource: EHR Academic Affairs Dean dain: N Hubertti ce ID: 0001 Job lable Time: 03:45:00 PM Ana mccormick [facility] 14:03:37 Pelvic and perineal pain [id number] Completed 201610/15/2020 Pelvic pain;Rec orded Elsewher e: No Locat ion: [facility] S ource: EHR Academic Affairs Dean dain: N Hubertti ce ID: 0001 Job lable Time: 03:45:00 PM Ana mccormick [facility] 14:03:29 Pregnanc y test negative [id number] Completed 201610/15/2020 Encounte r for pregnanc y test, result negative ;Recorde d Elsewher e: No Locat ion: Janettjodie akil [facility] S ource: EHR Academic Affairs Dean dain: N Practi ce ID: 0001 Job lable Time: 04:00:00 PM Ana mccormick [facility] 14:03:30 Finding of regulari ty of menstrua l cycle Completed 201610/15/2020 Irregula r bleeding ;Recorde d Elsewher e: No Locat ion: Janettmaria g akil [facility] S ource: EHR Academic Affairs Dean dain: N Practi ce ID: 0001 Job lable Time: 04:00:00 PM Ana Roman [facility] 14:03:22 Acute vaginiti s [id number] Completed 201610/15/2020 Vaginiti s;Record ed Elsewher e: No Locat ion: Janettjodie akil [facility] S ource: EHR Academic Affairs Dean dain: N Practi ce ID: 0001 Job lable Time: 11:30:00 AM Ana Roman [facility] 14:03:09 Blood leukocyt e number above referenc e range [id number] Completed 201810/15/2020 Elevated white blood cell count, unspecif ied;Eric rded Elsewher e: No Locat ion: Chely barnard [facility] S ource: EHR Academic Affairs Dean dain: N Practi ce ID: 0001 Job lable Time: 04:15:00 PM Ana mccormick [facility] 14:03:24 Dysuria [id number] Completed 201810/15/2020 Dysuria; Recorded Elsewher e: No Locat ion: Tunde akil [facility] S ource: EHR Academic Affairs Dean dain: N Practi ce ID: 0001 Job lable Time: 04:15:00 PM Ana Roman [facility] 14:03:18 Problem Notes None recorded. Procedures Surgical History Date Name Laterality Status Provider Name and Address Organization Details Recorded Time Tonsillectomy completed [facility] 09/21/2021 14:04:19 extraction of wisdom tooth completed [facility] 09/21/2021 14:04:26 Imaging Results None recorded. Procedure Notes None recorded. Medical Equipment None Reported. Allergies Allergen ID Allergen Name Allergen Category Reaction Reaction Severity Criticality Documentation Date Start Date Code Code System Note Provider Name and Address Organization Details Recorded Time 48915 bacitraci n medicatio n Not available Not available Not available 08/31/2020 1291 RxNorm Comme nt: Locat ion: Emi victor [facility] sat[facility] Agent : [facility]; Not Available [facility] 0 14:17:54 86754 lidocaine medicatio n Not available Not available Not available 08/31/2020 6387 RxNorm Comme nt: Locat ion: [facility] Agent : [facility]; Not Available [facility] 0 14:17:54 08177 polymyxin B medicatio n Not available Not available Not available 08/31/2020 8536 RxNorm Comme nt: Locat ion: [facility] vict[facility] sat[facility] Agent : [facility]; Not Available [facility] 0 14:17:54 43974 pramoxine medicatio n Not available Not available Not available 08/31/2020 86945 RxNorm Comme nt: Locat ion: Emi victor [facility] sativ [facility] Agent : [facility]; Not Available [facility] 0 14:17:54 Medications Name Sig Start Date Stop Date Status Note LastModified by Organization Details LastModified Time id now influenza a & b 2 test kit TEST DIRECTED TODAY 12/13 completed Not Available Not Available Not Available Prometriu m 200 mg capsule take 1 capsule (200MG) by oral route every day for 12 days 06/25 completed Prescrib ed Elsewher e: No Locat ion: [facility] odify By: gmedical Encount er DateTime : 06/14/20 13 12:08:37 PM Not Available Not Available Not Available levothyro xine 137 mcg tablet TAKE 1 TABLET BY MOUTH DAILY active Not Available Not Available No t Available azithromy alyson 250 mg tablet TAKE 2 TABLETS BY MOUTH FOR 1 DAY THEN TAKE 1 TABLET BY MOUTH EVERY DAY 12/13 completed Not Available Not Available Not Available ofloxacin 0.3 % eye drops INSTILL 1 DROP IN LEFT EYE FOUR TIMES DAILY 09/23 completed Not Available Not Available Not Available valacyclo vir 1 gram tablet TAKE 2 TABLET BY MOUTH TWICE DAILY FOR 1 DAY AT THE ONSET OF HERPES active Not Available Not Available No t Available meloxicam 15 mg tablet active Not Available Not Available Not Available prednison e 20 mg tablet TAKE 2 TABLETS BY MOUTH EVERY DAY FOR 5 DAYS 12/13 completed Not Available Not Available Not Available Diflucan 150 mg tablet one tablet now 10/15 completed Not Available Not Available Not Available sulfameth oxazole 800 mg-trimet hoprim 160 mg tablet TAKE 1 TABLET BY MOUTH TWICE DAILY FOR 7 DAYS 12/13 completed Not Available Not Available Not Available tramadol 50 mg tablet TAKE 1 TABLET BY MOUTH EVERY 6 HOURS NEEDED FOR PAIN 12/13 completed Not Available Not Available Not Available acetamino phen 500 mg tablet 09/23 completed Not Available Not Available Not Available levothyro xine 25 mcg tablet take 1 tablet by oral route every day 09/23 completed Prescrib ed Elsewher e: Yes [facility] odify By: abril Salinas r DateTime : 09/11/20 17 11:30:00 AM Not Available Not Available Not Available ketorolac 10 mg tablet active Not Available Not Available Not Available Macrobid 100 mg capsule take 1 capsule by oral route every 12 hours with food 10/15 completed Prescrib ed Elsewher e: No Locat ion: Chely barnard [facility] odify By: viki Salinas r DateTime : 05/04/20 19 04:15:00 PM Not Available Not Available Not Available Metrogel Vaginal 0.75 % (37.5 mg/5 gram) insert 1 applicat orful by vaginal route every day at bedtime x 5 days 10/15 completed Prescrib ed Elsewher e: No [facility] odify By: kpanyik Rita r DateTime : 09/11/20 17 11:30:00 AM Not Available Not Available Not Available prednisol one acetate 1 % eye drops,kenneth pension 09/23 completed Not Available Not Available Not Available cephalexi n 500 mg capsule 09/23 completed Not Available Not Available Not Available erythromy alyson 5 mg/gram (0.5 %) eye ointment APPLY THIN LAYER IN RIGHT EYE THREE TIMES DAILY 09/23 completed Not Available Not Available Not Available gabapenti n 300 mg capsule TAKE 1 CAPSULE BY MOUTH THREE TIMES DAILY active Not Available Not Available No t Available dorzolami de 22.3 mg-timolo l 6.8 mg/mL eye drops INSTILL 1 DROP IN BOTH EYES TWICE DAILY active Not Available Not Available No t Available methylpre dnisolone 4 mg tablets in a dose pack FOLLOW PACKAGE DIRECTIO NS 12/13 completed Not Available Not Available Not Available albuterol sulfate HFA 90 mcg/actua tion aerosol inhaler INHALE 2 PUFFS BY MOUTH FOUR TIMES DAILY NEEDED FOR SHORTNES S OF BREATH OR WHEEZING active Not Available Not Available No t Available ondansetr on 4 mg disintegr ating tablet DISSOLVE 1 TABLET ON THE TONGUE FOUR TIMES DAILY FOR 3 DAYS active Not Available Not Available No t Available cefdinir 300 mg capsule TAKE 1 CAPSULE BY MOUTH EVERY 12 HOURS 09/23 completed Not Available Not Available Not Available fluticaso ne propionat e 50 mcg/actua tion nasal spray,kenneth pension SHAKE LIQUID AND USE 1 SPRAY IN EACH NOSTRIL TWICE DAILY 09/23 completed Not Available Not Available Not Available amoxicill in 875 mg-potass ium clavulana te 125 mg tablet TAKE 1 TABLET BY MOUTH TWICE DAILY FOR 10 DAYS 12/13 completed Not Available Not Available Not Available oxycodone 5 mg tablet 09/23 completed Not Available Not Available Not Available Bactrim 400 mg-80 mg tablet take 2 tablet by oral route every 12 hours 06/13 completed Prescrib ed Elsewher e: Yes Loca tion: Che[facility] odify By: lindsay pascal DateTime : 04/25/20 13 02:30:00 PM Not Available Not Available Not Available Zithromax 500 mg tablet take 2 tablet by oral route once 08/25 completed Prescrib ed Elsewher e: No Locat ion: [facility] odify By: maksim pascal DateTime : 08/13/20 16 02:14:12 PM Not Available Not Available Not Available duloxetin e 30 mg capsule,d elayed release TAKE 1 CAPSULE BY MOUTH DAILY 09/23 completed Not Available Not Available Not Available duloxetin e 60 mg capsule,d elayed release TAKE 1 CAPSULE BY MOUTH DAILY active Not Available Not Available No t Available gabapenti n 09/23 completed Not Available Not Available Not Available Tirosint 13 mcg capsule take 1 capsule by oral route every day 09/11 completed Prescrib ed Elsewher e: Yes Loca tion: [facility] odify By: abril lemons DateTime : 04/23/20 17 04:00:00 PM Not Available Not Available Not Available fluticaso ne 113 mcg-salme terol 14 mcg/actua tion breath activated powdr INHALE 1 PUFF BY MOUTH EVERY 12 HOURS. RINSE AND SPIT AFTER EACH USE 09/23 completed Not Available Not Available Not Available ID NOW COVID-19 Test Kit TEST DIRECTED TODAY 12/13 completed Not Available Not Available Not Available Vitals Date Recorded Body height Body mass index (BMI) Body weight Systolic And Diastolic Provider Name and Address Organization Details Last Updated DateTime 09/23/2021 160.02 cm 32.9 kg/m2 26550.18 g 117/72 mm[Hg] Lakshmi Jaime [facility] 09/23/2021 12:09:52 Date Recorded Body weight Systolic And Diastolic Provider Name and Address Organization Details Last Updated DateTime 12/13/2022 41749.48 g 112/74 mm[Hg] Karen Pham [facility] 12/13/2022 12:33:26 Social History Question Answer Notes LastModified by Organizat ion Details LastModified Time Tobacco Smoking Status Never Smoker Lakshmi Jaime [facility], [facility] 09/23/2021 12:10:39 Do You Have An Advance Directive? No Information n ot available 09/23/2021 Are You Blind Or Do You Have Difficulty Seeing? No [email or web address] Information n ot available 09/23/2021 What Is Your Level Of Caffeine Consumption? Occasional [email or web address] Information not available 09/23/2021 How Much Tobacco Do You Chew? None [email or web address] Information not available 09/23/2021 In The 14 Days Before Symptom Onset, Have You Had Close Contact With A Laboratory-confirm ed COVID-19 While That Case Was Ill? No [email or web address] Information n ot available 09/23/2021 In The 14 Days Before Symptom Onset, Have You Had Close Contact With A Person Who Is Under Investigation For COVID-19 While That Person Was Ill? No [email or web address] Information not available 09/23/2021 Have You Been To An Area Known To Be High Risk For COVID-19? No [email or web address] Information not available 09/23/2021 Are You Deaf Or Do You Have Serious Difficulty Hearing? No [email or web address] Information not available 09/23/2021 What Type Of Diet Are You Following? REGULAR [email or web address] Information n ot available 09/23/2021 What Is The Highest Grade Or Level Of School You Have Completed Or The Highest Degree You Have Received? [id number] Information not available 09/23/2021 Are There Any Guns Present In Your Home? No [email or web address] Information not available 09/23/2021 Do You Use Protection During Sex? Usually Information not available 09/23/2021 Do You Use Your Seat Belt Or Car Seat Routinely? Yes [email or web address] Information not available 09/23/2021 Do You Have Smoke And Carbon Monoxide Detectors In Your Home? Yes [email or web address] Information not available 09/23/2021 At What Age Did You Start Smoking Tobacco? 18 [email or web address] Information not available 09/23/2021 How Much Tobacco Do You Smoke? 0.5 PPD Information not available 09/23/2021 Do You Use Sunscreen Routinely? Yes [email or web address] Information not available 09/23/2021 How Many Years Have You Smoked Tobacco? 5 Information not available 09/23/2021 Have You Used IV Drugs? No [email or web address] Information not available 09/23/2021 Do You Have Difficulty Walking Or Climbing Stairs? No [email or web address] Information not available 10/24/2021 Sex: Unknown Functional Status Question Answer Note LastModified by Organizat ion Details LastModified Time Do you use any illicit or recreational drugs? Yes [email or web address] Information not available 09/23/2021 What is your level of alcohol consumption? None [email or web address] Information not available 09/23/2021 Are you able to walk? YESWOREST Information not available 09/23/2021 Are you able to care for yourself independently? Yes [email or web address] Information not available 10/24/2021 Do you have difficulty dressing, bathing, grooming, or toileting? No [email or web address] Information not available 10/24/2021 What is your exercise level? Moderate [email or web address] Information not available 09/23/2021 Mental Status Question Answer Note LastModified by Organization D etails LastModified Time Do you feel stressed (tense, restless, nervous, or anxious, or unable to sleep at night)? [id number] [email or web address] Information not available 09/23/2021 Family History Relationship Description Onset Age of this Age Resolved Age Notes LastModified by Organization Details LastModified Time Brother Asthma [email or web address] Not available 10/15/2020 14:04:39 Brother Anemia Not availabl e 09/21/2021 14:03:41 Mother Anemia [email or web address] Not available 09/21/2021 14:03:41 Mother Malignant tumor of cervix [email or web address] Not available 09/21 14:03:49 Mother Cyst of ovary Not available 2021 11:42:54 Maternal Grandmother Disorder of thyroid gland [email or web address] Not available 09/21 14:04:08 Medical History Condition Response Allergies (Food, seasonal, environmental ) Y Other N Breast Cancer N Drug/Latex Allergies/Reactions Y Blood Transfusion N Dermatologic Disorders N Lung Disease N Defects or Inherited Disease N Breast Problem N Gestational Diabetes N Hematologic disorders N Anesthesia Complications N History of STI Y Deep Vein Thrombosis N Polycystic ovary syndrome N Anxiety Disorder Y Autoimmune disease Y Arthritis N Infertility N Polyps N Acid Reflux (GERD) N History of abnormal pap N Cancer N Stroke N Varicosities N Neurologic/Epilepsy Y Endometriosis N High Cholesterol N Headaches N Fibromyalgia Y Kidney Disease N Heart Problems N Kidney or Bladder Problems N Thyroid Problems Y GI Problems N Eating Disorder N Anemia N Art (IVF or FET) N Psychiatric Illness N Ovarian Cancer N Diabetes N Pulmonary (TB, Asthma) N Hepatitis/Liver Disease N No Past Medical History N Eczema N Urinary Tract Infection N Abuse/Domestic Violence N Asthma Y Trauma/Violence N Depression/ depression Y Heart Disease N Pre-Eclampsia N Hypertension N Osteoporosis N Thrombophilias N Gynecological History Statement/Question Response Abnormal Pap N Date of Last Mammogram Most Recent Bone Density Date of LMP 12/10/2022 N STIs/STDs Yes Was last menstrual period normal N Age of first menstrual cycle 12 HPV Vaccine Y Date of Last Pap Smear Current Control Method None N Obstetrics History GPAL:G 0 P 0 0 0 0 Type Value Living 0 Total 0 Past Encounters Encounter ID Performer Location Encounter Start Date Encounter Closed Date Diagnosis/Indication Diagnosis SNOMED-CT Code Diagnosis ICD10 Code Diagnosis Note [id number] Marce Antoine [facility] [address] [address] 09/23/2021 11:40:12 09/23/2021 12:47:11 Pain in pelvis 31066227 R10.2 discussed probable cyst, will f/u pending us results Mass of left breast [id number] N63.20 us order given Amenorrhea 33312233 N91. 2 discussed endometria l hyperplasi a risks, needs cycle q 3 months, declines bcm to regulate, declines blood at this time, will wait and see if cycle comes within 3 mo time call if no cycle and will do labs and do a round of prometrium . pt verb understand ing, f/u wwe [id number] MARGI [facility] [address] [address] 12/13/2022 12:22:04 12/17/2022 14:59:59 Venereal disease screening [id number] Z11.3 Today STD screening was obtained & submitted for evaluation .Will contact pt with resultsCou domingo on safe sex practices. Understand ing verbalized . Time spent in visit is a total of 15 mins with at least 50% of visit consisting of counseling and review of plan of care. Health Concerns Section Related Observation LastModified by Organization Detai ls LastModified Time None Recorded Concern Status LastModified by Organization Details LastModified Time None Recorded Advance Directives Directive N: Payers Insurance Date Sequence Insurance Name Policy Number Policy Lindsey Covered Member ID Lindsey Member ID Guarantor Name 12/10/[address] [facility] Max Mohan [id number] Starr Espinoza 03/13/2023 [place] Starr Espinoza [id number] Starr Espinoza 03/13/2023 1 *SELF PAY* Manuel Espinoza 03/13/2023 1 [facility] - DOS ON OR AFTER 21 (MEDICAID REPLACEMENT - HMO) Starr Espinoza [id number] Starr Espinoza OBGyn Episode No OBEpisode recorded.
--- OUTSIDE RECORDS SUMMARY | 2025-04-11 15:44 | XMS_ITS | Clinical Summary ---
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 Swelling and redness and itching on localized area Polymyxin B Unknown 04/25/2013 Pramoxine Unknown 04/25/2013 Prochlorperazine Rash Medium 02/23/2019 Reaction: RASH, Sertraline Unknown 11/24/2016 Tape Unknown,Rash Medium 11/24/2016 Medications albuterol sulfate HFA 108 (90 Base) MCG/ACT inhaler Inhale 2 puffs into the lungs every 4 (four) hours. 8 Active ipratropium 0.06 % nasal spray 2 sprays by Nasal route 3 (three) times daily. 7 Active levothyroxine 137 MCG tablet Take 137 mcg by mouth. 9 Active hydrOXYzine 50 MG tabletIndications:M oderate anxiety Take 1 tablet (50 mg total) by mouth every 6 (six) hours as needed for Anxiety or Other (insomnia). 30 tablet 1 9 Active VALACYCLOVIR 1 g tabletIndications:H erpes labialis TAKE 2 TABLETS BY MOUTH TWICE DAILY FOR 1 DAY FOR HERPES LABIALIS 4 tablet 9 Active raltegravir 400 MG tablet Take 1 tablet (400 mg total) by mouth 2 (two) times daily. 59 tablet 9 Active dorzolamide-timolol 22.3-6.8 MG/ML Solution Place 1 drop into both eyes 2 (two) times daily. 9 Active dicyclomine 20 MG tablet Take 1 tablet (20 mg total) by mouth every 6 (six) hours. 20 tablet 0 Active famotidine 20 MG tablet Take 1 tablet (20 mg total) by mouth 2 (two) times daily. 60 tablet 0 Active cyclobenzaprine 10 MG tablet Take 1 tablet (10 mg total) by mouth 3 (three) times daily as needed for Muscle Spasms. 16 tablet 2 Active ondansetron (ZOFRAN-ODT) 4 MG disintegrating tablet Take 1 tablet (4 mg total) by mouth every 8 (eight) hours as needed for Nausea. 20 tablet 2 Active Active Problems Problem Noted Date Diagnosed Date Palpitations 09/09/2019 PTSD (post-traumatic stress disorder) 08/31/2019 Orthostatic dizziness 04/19/2019 Bilateral ocular hypertension 02/22/2019 Overview (08/24/2019): Last Assessment & Plan: Start Timolol BID both eyes (OU) due to the RNFL thinning in setting of TANESHA. RTC 3-4 weeks intraocular pressure (IOP) check. Dry cornea of both eyes due to Graves' disease 0 02/04/2019 Overview (08/24/2019): Last Assessment & Plan: Recommend Soothe or Refresh ATs BID+ both eyes (OU). Exophthalmos of both eyes 02/04/2019 Overview (08/24/2019): Overview: left eye (OS)>OD Last Assessment & Plan: left eye (OS)>OD. Stressed importance of dc smoking with patient. See plan above. Myopia of both eyes 02/04/2019 Overview (08/24/2019): Last Assessment & Plan: Update Mrx. Thyroid eye disease 02/04/2019 Overview (08/24/2019): Last Assessment & Plan: Pt ed on findings. Obtain CT scan of the orbits to assess EOMs. Refer to oculoplastics for evaluation after imaging is completed. OCT with RNFL thinning left eye (OS)>OD. No direct correlation on OCT. Due to borderline IOPs (27) and RNFL thinning, will start Timolol qam both eyes (OU). Postablative hypothyroidism 09/24/2018 Fatigue 2017 Graves disease 2017 Pain in joint 2017 Chronic sinusitis 10/19/2017 Cough 10/19/2017 Flu-like symptoms 10/15/2017 Viral upper respiratory tract infection with cou gh 10/15/2017 Post-nasal drip 07/24/2017 Acute viral pharyngitis 07/24/2017 Cat scratch 06/02/2017 Herpes labialis 05/05/2017 Hypothyroidism 05/05/2017 URI, acute 03/02/2017 Moderate anxiety 11/24/2016 BPPV (benign paroxysmal positional vertigo) 11/12 Memory impairment 05/07/2016 Syncope 05/07/2016 Anaclitic depression 06/03/2015 Current smoker 04/04/2015 Overview (08/24/2019): Overview: Description: 6 cigs per day since age 18 Involuntary quiver 11/28/2014 Migraine with aura 11/28/2014 Muscle weakness of lower extremity 11/28/2014 Low back pain 01/01/2010 Resolved Problems Problem Noted Date Diagnosed Date Resolved Date Encounter for preventive health examination 10/20/2016 05/25/2020 Immunizations Immunization Administration Dates Next Due Dtap 12/13/2002 Influenza (Generic) 07/14/2003,08/13/1999 MMR 12/13/2002 Menactra 03/20/2015 Polio Ipv (Generic) 12/13/2002 Tdap (Boostrix) 11/05/2021 Family History Medical History Relation Comments Thyroid Disease Maternal Grandmother Cancer Mother LUPUS Mother NSVT Mother PVC ablation Mother Diabetes Paternal Grandfather Hypertension Paternal Grandfather CABG Paternal Grandmother Heart Attack Paternal Grandmother Hyperlipidemia Paternal Grandmother Hypertension Paternal Grandmother Pacemaker Paternal Grandmother Stent Cardiac Paternal Grandmother Thyroid Disease Paternal Grandmother Relation Status Comments Brother 1 Alive Brother 2 Alive Father (Age 32) Maternal Grandmother Mother Alive Paternal Grandfather Paternal Grandmother Alive Sister 1 Alive Sister 2 Alive Social History Tobacco Use Types Packs/Day Years Used Date Smoking Tobacco: Former Cigarettes 0.5 5 0 09/16/2017 - 09/16/2022 Smokeless Tobacco: Never Tobacco Cessation:Counseling Given: Not Answered Alcohol Use Standard Drinks/Week Comments Not Currently 0 (1 standard drink = 0.6 oz [...] file Not on file Not on file Last Filed Vital Signs Vital Sign Reading Time Taken Comments Blood Pressure 131/81 01/19/2023 2:24 PM CDT Pulse 75 01/19/2023 5:05 PM CDT Temperature 36.8 C (98.2 F) 01/19/2023 2:24 PM CDT Respiratory Rate 21 01/19/2023 2:24 PM CDT Oxygen Saturation 100% 01/19/2023 2:24 PM CDT Inhaled Oxygen Concentration - - Weight 73.5 kg (162 lb 0.6 oz) 01/19/2023 2:24 P M CDT Height 157.5 cm (5' 2) 01/19/2023 2:24 PM CDT Body Mass Index 29.64 01/19/2023 2:24 PM CDT Plan of Treatment Health Maintenance Due Date Last Done Comments Annual Physical 2000 Hepatitis B Vaccines (1 of 3 - 19+ 3-dose series) 2016 COVID-19 Vaccine (2023-2 5 season) 2024 HPV Vaccines (1 - 3-dose SCD M series) 2024 Cervical Cancer Screening Pa p Smear (Age 21 to 29) Every 3 Years 12/15/2025 12/15/2022 Cervical Cancer Screening 12/15/2025 DTaP, Tdap and Td Vaccines ( 3 - Td or Tdap) 11/05/2031 11/05/2021, 12/13/2002 Meningococcal Vaccine Completed 03/20/2015 Hepatitis C Completed 11/05/2021, 09/21/2019, 09/30/2011 Meningococcal B Vaccine Aged Out No l onger eligible based on patient's age to complete this topic Pneumococcal Vaccine: Pediatrics (0 to 5 Years) and At-Risk Patients (6 to 49 Years) Aged Out No longer eligible b ased on patient's age to complete this topic RSV Immunizations Under 20 Months Aged Out No longer eligible b ased on patient's age to complete this topic Procedures Procedure Name Priority Date/Time Associated Diagnosis Comments HEPATITIS C ANTIBODY STAT 11/05/2021 6:23 PM PHOTOGRAPHIC PLATEMAKER from Last 3 Months or Most Recently Relevant to Health Maintenance Results * HEPATITIS C ANTIBODY (11/05/2021 6:23 PM PHOTOGRAPHIC PLATEMAKER) HEPATITIS C AB NON-REACTI VE NON-REACTI VE 11/05/2021 7:56 PM PHOTOGRAPHIC PLATEMAKER [facility] 11/05/2021 6:23 PM PHOTOGRAPHIC PLATEMAKER [facility] Final Result [facility] [address] [place] [address], [place] [phone] from Last 3 Months or Most Recently Relevant to Health Maintenance Insurance [facility] TAMIA JOHNSON [id number] [place] [employer] Care Teams Sculpture Conservator Relationship Specialty Start Date End Date Prosper Welch MD [address] [place] [address] [address] [place] [address] PCP - General FAMILY PRACTICE 01/19/23 Shefali Herring MD [address] [address] EP Rn L And D CLINICAL CARDIAC ELECTROPHYSIOLOGY 09/16/19
== END 2025-04-11 15:36 | disposition home or self-care (01) ==
LOC: ANHIMG 15:40
PROVIDERS: PCP Family Medicine; Visit Provider Family Medicine
DX: S60.041A Contusion of right ring finger without damage to nail, initial encounter (principal); M79.641 Pain in right hand; X58.XXXA Exposure to other specified factors, initial encounter
CPT/HCPCS: 73120

== ENCOUNTER 2025-04-12 11:40 | Emergency (ER) | payer OTHER, SELFPAY ==
--- NOTE | ~2025-04-12 | XR_ITS ---
EXAMINATION: XR hand RT min 3V DATE: 04/12/2025 12:17 INDICATION: Right hand injury post fall TECHNIQUE: Posteroanterior, oblique and lateral views of the right hand were obtained. COMPARISON: 04/11/2025 FINDINGS: Alignment is normal. No fracture. Joint spaces are normal. Soft tissues are unremarkable. IMPRESSION: 1. Negative right hand radiographs. Reviewed, dictated and finalized at location A.
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
[2025-04-12 11:45] VITALS: BP 103/71; PULSE 65; RESP 12; TEMP 36.6; O2SAT 100
== END 2025-04-12 12:55 | disposition home or self-care (01) ==
PROVIDERS: Emergency Provider Registered Nurse; PCP Family Medicine
DX: S60.221A Contusion of right hand, initial encounter (principal); X58.XXXA Exposure to other specified factors, initial encounter; J45.909 Unspecified asthma, uncomplicated; E66.9 Obesity, unspecified; Z68.31 Body mass index [BMI] 31.0-31.9, adult
CPT/HCPCS: 73130; 99213; G0463